=== PATIENT | female | born 1970 | race Caucasian/White ===

== ENCOUNTER 2017-06-06 19:41 | Inpatient (IN) | payer MEDICAID, OTHER, SELFPAY ==
[2017-06-06] MEDS ORDERED: HYDROmorphone 1 MG/ML Syringe IVPUSH ONE (20:34)
[2017-06-06] MEDS ORDERED: Ondansetron 4 MG/2 ML SDV IVPUSH ONE (20:35)
[2017-06-06] MEDS ORDERED: Sodium Chloride 0.9% 1,000 ML IV SCH (20:45)
[2017-06-06] MEDS ORDERED: Sodium Chloride 0.9% 10 ML Syringe FLUSH PRN (20:46)
[2017-06-06] MEDS ORDERED: Sodium Chloride 0.9% 80 ML IV SCH (21:00)
[2017-06-06] MEDS ORDERED: Iopamidol 612 MG/ML 100 ML Bottle IV SCH (21:00)
--- NOTE | 2017-06-06 22:16 | PCM.HP ---
H&P History of Present Illness - General Date of Service: 06/06/17 Admit Problem/Dx: Admission Diagnosis/Problem Admission Diagnosis/Problem Small bowel obstruction Source of Information: Patient History Limitations: Reports: No Limitations - History of Present Illness Initial Comments - Free Text/Narative: Small bowel obstruction; this is a 47 year old female who presents to the ER via POV, reports acute abdominal pain with vomiting. Reports pain started last night with pain, and vomiting with any attempts to eat or drink. reports now feeling weak, body aches from not eating. She was recently hospitalized from 05-25-17 to 05-28-17 at [place], [place]. for sudden onset abdominal pain. She had a Diagnostic laparoscopy, reduction of internal hernia and small vowel volvulus, EGD. hx of gastric bypass. Consulted with Dr. Eduardo Enciso, will admit to hospital with planned surgical intervention in am. -NPO -IV fluids -Pain Management Duration of Symptoms: Reports: Day(s):, Getting Worse Location: Reports: Abdomen, Generalized (weakness, chills, not feeling well.) Quality: Reports: Sharp, Stabbing Severity: Severe Improves with: Reports: None Worsens with: Reports: Eating (or drinking.) Associated Symptoms: Reports: Fever/Chills, Nausea/Vomiting, Weakness Abdominal Pain Score (Numeric/FACES): 7 - Related Data Allergies/Adverse Reactions: Allergies Allergy/AdvReac Type Severity Reaction Status Date / Time No Known Allergies Allergy Verified 06/06/17 20:07 Home Medications: Home Meds Acyclovir [Zovirax] 1 tab PO TID PRN 04/05/13 [History] Cyanocobalamin (Vitamin B-12) [Vitamin B-12] 3,000 mcg SL DAILY 04/05/13 [ History] Docusate Sodium [Colace] 200 mg PO DAILY PRN 04/05/13 [History] Multivitamin with Minerals [Multiple Vitamin] 1 tab PO BID 04/05/13 [History] Polyethylene Glycol 3350 [MiraLAX] 17 gm PO DAILY PRN 04/05/13 [History] Sennosides [Laxative] 30 mg PO BEDTIME PRN 04/05/13 [History] Vitamin B Complex [B Complex] 1 each PO DAILY 04/05/13 [History] Zolpidem Tartrate 5 mg PO BEDTIME PRN 04/05/13 [History] Ferrous Fumarate [Ferretts] 106 mg PO DAILY 03/30/14 [History] oxyCODONE [Oxycodone HCl] 10 mg PO Q4H PRN 06/06/17 [History] Past Medical History 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: Musculoskeletal History: Reports: Fracture, Other (See Below) Other Musculoskeletal History: degenerative disease Psychiatric History: Reports: Depression, Psych Hospitalization(s), Suicide Attempt Hematologic History: Reports: Anemia, B12 Deficiency, Folic Acid - Infectious Disease History Infectious Disease History: Reports: Chicken Pox - Past Surgical History GI Surgical History: Reports: Bariatric Procedure, Cholecystectomy, Colonoscopy , Hernia Repair/Other, Small Bowel Social & Family History - Tobacco Use Smoking Status *Q: Never Smoker Second Hand Smoke Exposure: No - Caffeine Use Caffeine Use: Reports: Coffee - Alcohol Use Days Per Week of Alcohol Use: 2 Number of Drinks Per Day: 2 Total Drinks Per Week: 4 - Recreational Drug Use Recreational Drug Use: No H&P Review of Systems - Review of Systems: Review Of Systems: See Below General: Reports: Chills, Malaise, Weakness HEENT: Reports: No Symptoms Pulmonary: Reports: No Symptoms Cardiovascular: Reports: No Symptoms Gastrointestinal: Reports: Abdominal Pain, Nausea, Vomiting Genitourinary: Reports: Other (decreased urine output) Musculoskeletal: Reports: Back Pain, Muscle Pain, Muscle Stiffness Skin: Reports: No Symptoms Psychiatric: Reports: No Symptoms Neurological: Reports: No Symptoms Hematologic/Lymphatic: Reports: Anemia (hx of anemia, iron replacement) Immunologic: Reports: No Symptoms Exam - Exam Exam: See Below - Vital Signs Vital Signs: Last Vital Signs Temp 36.7 C 06/06/17 20:12 Pulse 89 06/06/17 22:06 Resp 17 06/06/17 22:06 BP 118/69 06/06/17 22:06 Pulse Ox 95 06/06/17 22:06 Weight: 80.5 kg - Exam General: Alert, Oriented, Cooperative, Mild Distress (crying upon arrival to ER improved with IV hydration and medication) HEENT: PERRLA, Conjunctiva Clear, EACs Clear, EOMI, Hearing Intact, Posterior Pharynx Clear, Pupils Equal, Pupils Reactive Neck: Supple, Trachea Midline Lungs: Clear to Auscultation, Normal Respiratory Effort Cardiovascular: Regular Rate, Regular Rhythm, Normal S1, Normal S2 GI/Abdominal Exam: Distended, Other (generalized pain to palpation upper half of abdomen. bowel sounds absent.) (Female) Exam: Deferred Rectal (Female) Exam: Deferred Back Exam: Normal Inspection, Full Range of Motion, NT Extremities: Normal Inspection, Normal Range of Motion, Non-Tender, No Pedal Edema, Normal Capillary Refill Skin: Warm, Dry, Intact Neurological: Cranial Nerves Intact, Reflexes Equal Bilateral Neuro Extensive - Mental Status: Alert, Oriented x3, Normal Mood/Affect, Normal Cognition Neuro Extensive - Motor, Sensory, Reflexes: CN II-XII Intact Psychiatric: Alert, Normal Affect, Normal Mood - Patient Data Result Diagrams: 06/06/17 20:37 06/06/17 20:37 *Q Meaningful Use (ADM) - VTE *Q VTE Criteria *Q: - Stroke *Q Stroke Criteria *Q: - AMI *Q AMI Criteria *Q: - Problem List (1) Small bowel obstruction SNOMED Code(s): 199538712 ICD Code: K56.609 - UNSP INTESTNL OBST, UNSP TO PARTIAL VERSUS COMPLETE OBST Status: Acute Priority: High Current Visit: Yes (2) History of gastric bypass SNOMED Code(s): 823030792 ICD Code: Z98.890 - OTHER SPECIFIED POSTPROCEDURAL STATES Status: Acute Priority: High Current Visit: Yes (3) Hypokalemia SNOMED Code(s): 56163994 ICD Code: E87.6 - HYPOKALEMIA Status: Acute Priority: Medium Current Visit: Yes Problem List Initiated/Reviewed/Updated: Yes Orders Last 24hrs: Active Orders 24 hr Category Date Time Status Resuscitation Status Routine Resus Stat 06/06/17 21:57 Ordered Medication Orders Sodium Chloride (Normal Saline) 1,000 mls @ 999 mls/hr IV [facility]IRECTED [facility] Last Admin: 06/06/17 20:49 Dose: 999 mls/hr Sodium Chloride (Normal Saline) 80 mls @ 3 mls/sec IV ASDIRECTED [facility] Last Admin: 06/06/17 20:57 Dose: 3 mls/sec Iopamidol (Isovue-300 (61%)) 100 ml IV . 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 once Maintenance issues - - DVT prophylaxis - mechanical - GI prophylaxis - PPI IV Protonix 40mg - Nutrition - NPO - Escobar catheter - not indicated CODE STATUS - FULL Admission justification - This patient will be admitted for inpatient services and is medically appropriate meeting medical necessity for inpatient admission as outlined in my documentation. I reasonably expect the patient will require inpatient services that span a period time over 2 midnights. I reasonably expect this patient to be discharged or transferred within 96 hours [facility]. Disposition - anticipate discharge to home Primary care physician - [facility] Surgeon: Dr. Eduardo Enciso
[2017-06-06] MEDS ORDERED: Potassium Chloride 20 MEQ in Premix Bag 1 BAG IV ONE (22:22)
[2017-06-06] MEDS ORDERED: Zolpidem 5 MG Tab PO PRN (22:22)
[2017-06-06] MEDS ORDERED: Albuterol 0.083% 2.5 MG/3 ML Neb Soln NEB PRN (22:22)
[2017-06-06] MEDS ORDERED: Ondansetron 4 MG/2 ML SDV IV PRN (22:22)
[2017-06-06] MEDS ORDERED: HYDROmorphone/Normal Saline 15 MG/30 ML PCA IV PRN (22:22)
[2017-06-06] MEDS ORDERED: Naloxone 0.4 MG/ML SDV IVPUSH PRN ×2 (22:22)
[2017-06-06] MEDS: LORazepam 2 MG/ML MDV IV PRN (22:46)
[2017-06-06] MEDS: Dextrose 5%-Lactated Ringers 1,000 ML IV SCH (22:50)
[2017-06-06] MEDS: Pantoprazole 40 MG Vial IV SCH (22:58)
--- NOTE | 2017-06-07 00:39 | EDM.PDOC ---
ED HPI GENERAL MEDICAL PROBLEM - General Chief Complaint: Abdominal Pain Stated Complaint: PAIN NOT AN ACCIDENT Time Seen by Provider: 06/06/17 19:55 Source of Information: Reports: Patient History Limitations: Reports: No Limitations - History of Present Illness INITIAL COMMENTS - FREE TEXT/NARRATIVE: Small bowel obstruction; this is a 47 year old female who presents to the ER via POV, reports acute abdominal pain with vomiting. Reports pain started last night with pain, and vomiting with any attempts to eat or drink. reports now feeling weak, body aches from not eating. She was recently hospitalized from 05-25-17 to 05-28-17 at [place], [place]. for sudden onset abdominal pain. She had a Diagnostic laparoscopy, reduction of internal hernia and small vowel volvulus, EGD. hx of gastric bypass. Duration: Day(s):, Getting Worse Location: Reports: Abdomen, Generalized (weakness, chills, not feeling well.) Quality: Reports: Sharp, Stabbing Severity: Severe Improves with: Reports: None Worsens with: Reports: Eating (or drinking.) Associated Symptoms: Reports: Fever/Chills, Nausea/Vomiting, Weakness Abdominal Pain Score (Numeric/FACES): 7 - Related Data Allergies Allergy/AdvReac Type Severity Reaction Status Date / Time No Known Allergies Allergy Verified 06/06/17 20:07 Home Meds: Home Meds Acyclovir [Zovirax] 1 tab PO TID PRN 04/05/13 [History] Cyanocobalamin (Vitamin B-12) [Vitamin B-12] 3,000 mcg SL DAILY 04/05/13 [ History] Docusate Sodium [Colace] 200 mg PO DAILY PRN 04/05/13 [History] Multivitamin with Minerals [Multiple Vitamin] 1 tab PO BID 04/05/13 [History] Polyethylene Glycol 3350 [MiraLAX] 17 gm PO DAILY PRN 04/05/13 [History] Sennosides [Laxative] 30 mg PO BEDTIME PRN 04/05/13 [History] Vitamin B Complex [B Complex] 1 each PO DAILY 04/05/13 [History] Zolpidem Tartrate 5 mg PO BEDTIME PRN 04/05/13 [History] Ferrous Fumarate [Ferretts] 106 mg PO DAILY 03/30/14 [History] oxyCODONE [Oxycodone HCl] 10 mg PO Q4H PRN 06/06/17 [History] 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: Musculoskeletal History: Reports: Fracture, Other (See Below) Other Musculoskeletal History: degenerative disease Psychiatric History: Reports: Depression, Psych Hospitalization(s), Suicide Attempt Hematologic History: Reports: Anemia, B12 Deficiency, Folic Acid - Infectious Disease History Infectious Disease History: Reports: Chicken Pox - Past Surgical History GI Surgical History: Reports: Bariatric Procedure, Cholecystectomy, Colonoscopy , Hernia Repair/Other, Small Bowel Social & Family History - Family History Family Medical History: Noncontributory - Tobacco Use Smoking Status *Q: Never Smoker Second Hand Smoke Exposure: No - Caffeine Use Caffeine Use: Reports: Coffee - Alcohol Use Days Per Week of Alcohol Use: 2 Number of Drinks Per Day: 2 Total Drinks Per Week: 4 - Recreational Drug Use Recreational Drug Use: No - Living Situation & Occupation Living situation: Reports: with Family (lives in [facility]) ED ROS GENERAL - Review of Systems Review Of Systems: See Below Constitutional: Reports: Chills, Decreased Appetite (unable to eat or drink due to vomiting) HEENT: Reports: No Symptoms Respiratory: Reports: No Symptoms Cardiovascular: Reports: No Symptoms Endocrine: Reports: No Symptoms GI/Abdominal: Reports: Abdominal Pain, Nausea, Vomiting : Reports: Dysuria Musculoskeletal: Reports: Back Pain Skin: Reports: No Symptoms Neurological: Reports: No Symptoms Psychiatric: Reports: No Symptoms Hematologic/Lymphatic: Reports: No Symptoms Immunologic: Reports: No Symptoms ED EXAM, GENERAL - Physical Exam Exam: See Below Exam Limited By: No Limitations General Appearance: Alert, WD/WN, Moderate Distress Eye Exam: Bilateral Eye: Normal Inspection Ears: Normal External Exam, Normal Canal, Hearing Grossly Normal, Normal TMs Ear Exam: Bilateral Ear: Auricle Normal, Canal Normal, TM normal Nose: Normal Inspection, Normal Mucosa, No Blood Throat/Mouth: Normal Inspection, Normal Lips, Normal Teeth, Normal Gums, Normal Oropharynx, Normal Voice, No Airway Compromise Head: Atraumatic, Normocephalic Neck: Normal Inspection, Supple, Non-Tender, Full Range of Motion Respiratory/Chest: No Respiratory Distress, Lungs Clear, Normal Breath Sounds, No Accessory Muscle Use, Chest Non-Tender Cardiovascular: Normal Peripheral Pulses, Regular Rate, Rhythm, No Edema, No Gallop, No JVD, No Murmur, No Rub GI/Abdominal: Distended, Other (generalized pain to palpation upper half of abdomen. bowel sounds absent.) (Female) Exam: Deferred Rectal (Female) Exam: Deferred Back Exam: Normal Inspection, Full Range of Motion, NT Extremities: Normal Inspection, Normal Range of Motion, Non-Tender, No Pedal Edema, Normal Capillary Refill Neurological: Alert, Oriented, No Motor/Sensory Deficits Psychiatric: Anxious, Tearful Skin Exam: Warm, Dry, Intact, Normal Color, No Rash Lymphatic: No Adenopathy Course - Vital Signs Last Recorded V/S: Last Vital Signs Temp 37.3 C 06/06/17 22:22 Pulse 68 06/06/17 22:22 Resp 16 06/06/17 22:22 BP 125/76 06/06/17 22:22 Pulse Ox 93 L 06/06/17 23:19 - Orders/Labs/Meds Orders: Active Orders 24 hr Category Date Time Status Abdomen Pelvis w Cont [CT] Stat Exams 06/06/17 20:41 Taken Medication Orders Albuterol (Proventil Neb Soln) 2.5 mg NEB Q4H PRN PRN Reason: Shortness Of Breath/wheezing Hydromorphone HCl (Dilaudid Marine Firer 15 Mg In Ns 30 Ml) 0 mg IV ASDIRECTED PRN; Protocol PRN Reason: Pain Last Admin: 06/06/17 22:44 Dose: 15 mg Dextrose/Lactated Ringer's (Dextrose 5%-Lactated Ringers) 1,000 mls @ 125 mls/ hr IV ASDIRECTED MADDI Last Admin: 06/06/17 22:50 Dose: 125 mls/hr Lorazepam (Ativan) 1 mg IV Q6H PRN PRN Reason: Nausea/Vomiting Last Admin: 06/06/17 22:46 Dose: 1 mg Naloxone HCl (Narcan) 0.4 mg IVPUSH Q2M PRN PRN Reason: Respiratory Distress Naloxone HCl (Narcan) 0.4 mg IVPUSH Q2M PRN PRN Reason: Respiratory Distress Ondansetron HCl (Zofran) 4 mg IV Q4H PRN PRN Reason: Nausea/Vomiting Pantoprazole Sodium (Protonix Iv) 40 mg IV Q12H MADDI Last Admin: 06/06/17 22:58 Dose: 40 mg Zolpidem Tartrate (Ambien) 5 mg PO BEDTIME PRN PRN Reason: Other Last Admin: 06/06/17 23:07 Dose: 5 mg Labs: Laboratory Tests 06/06/17 06/06/17 06/06/17 Range/Units 20:37 20:37 20:37 WBC 15.0 H (4.5-11.0) K/uL RBC 4.18 (3.30-5.50) M/uL Hgb 12.8 (12.0-15.0) g/dL Hct 39.2 (36.0-48.0) % MCV 94 (80-98) fL MCH 31 (27-31) pg MCHC 33 (32-36) % Plt Count 398 (150-400) K/uL Neut % (Auto) 93 H (36-66) % Lymph % (Auto) 4 L (24-44) % Porter % (Auto) 2 (2-6) % Eos % (Auto) 1 L (2-4) % Baso % (Auto) 0 (0-1) % PT 10.3 (9.5-12.0) sec INR 0.96 (0.80-1.20) Sodium 139 L (140-148) mmol/L Potassium 3.5 L (3.6-5.2) mmol/L Chloride 103 (100-108) mmol/L Carbon Dioxide 24 (21-32) mmol/L Anion Gap 15.5 H (5.0-14.0) mmol/L BUN 14 (7-18) mg/dL Creatinine 0.8 (0.6-1.0) mg/dL Est Cr Clr Drug Dosing 71.91 mL/min Estimated GFR (MDRD) > 60 (>60) Glucose 109 H (74-106) mg/dL Calcium 8.8 (8.5-10.1) mg/dL Magnesium (1.8-2.4) mg/dL Total Bilirubin 0.4 (0.2-1.0) mg/dL AST 18 (15-37) U/L ALT 23 (12-78) U/L Alkaline Phosphatase 52 (46-116) U/L Total Protein 7.3 (6.4-8.2) g/dL Albumin 3.8 (3.4-5.0) g/dL Globulin 3.5 (2.3-3.5) g/dL Albumin/Globulin Ratio 1.1 L (1.2-2.2) Amylase (25-115) U/L Lipase (73-393) U/L Urine Color Urine Appearance Urine pH (4.5-8.0) Ur Specific [place] (1.008-1.030) Urine Protein (NEGATIVE) mg/dL Urine Glucose (UA) (NEGATIVE) mg/dL Urine Ketones (NEGATIVE) mg/dL Urine Occult Blood (NEGATIVE) Urine Nitrite (NEGATIVE) Urine Bilirubin (NEGATIVE) Urine Urobilinogen (NORMAL) mg/dL Ur Leukocyte Esterase (NEGATIVE) Urine RBC (0-5) Urine WBC (0-5) Ur Epithelial Cells Amorphous Sediment Urine Bacteria Urine Mucus Urine Other Urinalysis Comment 06/06/17 06/06/17 06/06/17 Range/Units 20:37 20:37 20:53 WBC (4.5-11.0) K/uL RBC (3.30-5.50) M/uL Hgb (12.0-15.0) g/dL Hct (36.0-48.0) % MCV (80-98) fL MCH (27-31) pg MCHC (32-36) % Plt Count (150-400) K/uL Neut % (Auto) (36-66) % Lymph % (Auto) (24-44) % Porter % (Auto) (2-6) % Eos % (Auto) (2-4) % Baso % (Auto) (0-1) % PT (9.5-12.0) sec INR (0.80-1.20) Sodium (140-148) mmol/L Potassium (3.6-5.2) mmol/L Chloride (100-108) mmol/L Carbon Dioxide (21-32) mmol/L Anion Gap (5.0-14.0) mmol/L BUN (7-18) mg/dL Creatinine 0.7 (0.6-1.0) mg/dL Est Cr Clr Drug Dosing 82.19 mL/min Estimated GFR (MDRD) > 60 (>60) Glucose (74-106) mg/dL Calcium (8.5-10.1) mg/dL Magnesium 1.9 (1.8-2.4) mg/dL Total Bilirubin (0.2-1.0) mg/dL AST (15-37) U/L ALT (12-78) U/L Alkaline Phosphatase (46-116) U/L Total Protein (6.4-8.2) g/dL Albumin (3.4-5.0) g/dL Globulin (2.3-3.5) g/dL Albumin/Globulin Ratio (1.2-2.2) Amylase 57 (25-115) U/L Lipase 362 (73-393) U/L Urine Color [place] Urine Appearance Cloudy Urine pH 5.0 (4.5-8.0) Ur Specific [place] 1.025 (1.008-1.030) Urine Protein Negative (NEGATIVE) mg/dL Urine Glucose (UA) Normal (NEGATIVE) mg/dL Urine Ketones Negative (NEGATIVE) mg/dL Urine Occult Blood Large (NEGATIVE) Urine Nitrite Negative (NEGATIVE) Urine Bilirubin Small (NEGATIVE) Urine Urobilinogen 1 (NORMAL) mg/dL Ur Leukocyte Esterase Small (NEGATIVE) Urine RBC 0-5 (0-5) Urine WBC 5-10 H (0-5) Ur Epithelial Cells Many Amorphous Sediment Few Urine Bacteria Moderate Urine Mucus Numerous Urine Other See note Urinalysis Comment Clue cells seen Meds: Medications Generic Name Dose Route Start Last Admin Trade Name Freq PRN Reason Stop Dose Admin Albuterol 2.5 mg 06/06/17 22:22 Proventil Neb Soln NEB Q4H PRN Shortness Of Breath/wheezing Hydromorphone HCl 0 mg 06/06/17 22:22 06/06/17 22:44 Dilaudid Marine Firer 15 Mg In Ns 30 Ml IV 15 mg ASDIRECTED PRN Administration Pain Protocol Dextrose/Lactated Ringer's 1,000 mls @ 125 mls/hr 06/06/17 22:22 06/06/17 22: 50 Dextrose 5%-Lactated Ringers IV 125 mls/hr ASDIRECTED MADDI Administration Lorazepam 1 mg 06/06/17 22:22 06/06/17 22:46 Ativan IV 1 mg Q6H PRN Administration Nausea/Vomiting Naloxone HCl 0.4 mg 06/06/17 22:22 Narcan IVPUSH Q2M PRN Respiratory Distress Naloxone HCl 0.4 mg 06/06/17 22:22 Narcan IVPUSH Q2M PRN Respiratory Distress Ondansetron HCl 4 mg 06/06/17 22:22 Zofran IV Q4H PRN Nausea/Vomiting Pantoprazole Sodium 40 mg 06/06/17 22:30 06/06/17 22:58 Protonix Iv IV 40 mg Q12H MADDI Administration Zolpidem Tartrate 5 mg 06/06/17 22:22 06/06/17 23:07 Ambien PO 5 mg BEDTIME PRN Administration Other Discontinued Medications Generic Name Dose Route Start Last Admin Trade Name Freq PRN Reason Stop Dose Admin Hydromorphone HCl 1 mg 06/06/17 20:34 06/06/17 20:49 Dilaudid IVPUSH 06/06/17 20:35 1 mg ONETIME ONE Administration Sodium Chloride 1,000 mls @ 999 mls/hr 06/06/17 20:45 06/06/17 20:49 Normal Saline IV 999 mls/hr ASDIRECTED MADDI Administration Sodium Chloride 80 mls @ 3 mls/sec 06/06/17 21:00 06/06/17 20:57 Normal Saline IV 3 mls/sec ASDIRECTED MADDI Administration Potassium Chloride 20 meq/ 100 mls @ 50 mls/hr 06/06/17 22:22 06/06/17 22:48 Premix IV 06/07/17 00:21 50 mls/hr ONETIME ONE Administration Iopamidol 100 ml 06/06/17 21:00 06/06/17 20:57 Isovue-300 (61%) IV 100 ml . DIRECTED MADDI Administration Lidocaine HCl Confirm 06/06/17 22:33 06/06/17 22:53 Xylocaine-Mpf 1% Administered 06/06/17 22:34 5 ml Dose Administration 5 ml .ROUTE .STK-MED ONE Ondansetron HCl 4 mg 06/06/17 20:35 06/06/17 20:49 Zofran IVPUSH 06/06/17 20:36 4 mg ONETIME ONE Administration Sodium Chloride 10 ml 06/06/17 20:46 06/06/17 20:57 Saline Flush FLUSH 10 ml ASDIRECTED PRN Administration Keep Vein Open - Re-Assessments/Exams Free Text/Narrative Re-Assessment/Exam: 06/06/2017 21:[address]; impression; this was reviewed with Ms. Rayo -post gastric bypass changes with obstruction involving the afferent loop, although small bowel dilatation extends to a short segment disetal to the jejunal anastomosis with apparent wall thickening in the small bowel segment at the transition point in the anterior right abdomen. mild bladder wall thickening. correlate with urinalysis for cystitis., smal pelvic free fluid. a; small bowel obstruction Consulted with Dr. Eduardo Enciso, will admit to hospital with planned surgical intervention in am. -NPO -IV fluids -Pain Management 06/07/17 00:46 Departure - Departure Time of Disposition: 23:00 Disposition: Admitted As Inpatient 66 Condition: Fair Clinical Impression: Small bowel obstruction - Discharge Information - Problem List & Annotations (1) Small bowel obstruction SNOMED Code(s): 502201257 Code(s): K56.609 - UNSP INTESTNL OBST, UNSP TO PARTIAL VERSUS COMPLETE OBST Status: Acute Priority: High Current Visit: Yes (2) History of gastric bypass SNOMED Code(s): 906360924 Code(s): Z98.890 - OTHER SPECIFIED POSTPROCEDURAL STATES Status: Acute Priority: High Current Visit: Yes (3) Hypokalemia SNOMED Code(s): 98535223 Code(s): E87.6 - HYPOKALEMIA Status: Acute Priority: Medium Current Visit: Yes - My Orders Last 24 Hours: My Active Orders 06/06/17 20:41 Abdomen Pelvis w Cont [CT] Stat - Assessment/Plan Last 24 Hours: My Active Orders 06/06/17 20:41 Abdomen Pelvis w Cont [CT] Stat
[2017-06-07] MEDS: Dextrose 5%-Lactated Ringers 1,000 ML IV SCH ×3 (06:11→22:17)
[2017-06-07] MEDS: LORazepam 2 MG/ML MDV IV PRN (06:34)
[2017-06-07] MEDS ORDERED: Glycopyrrolate 0.2 MG/ML 5 ML MDV ONE (07:22)
[2017-06-07] MEDS ORDERED: Ondansetron 4 MG/2 ML SDV ONE (07:22)
[2017-06-07] MEDS ORDERED: Succinylcholine 200 MG/10 ML MDV ONE (07:22)
[2017-06-07] MEDS ORDERED: Rocuronium 50 MG/5 ML Vial ONE ×2 (07:22→09:10)
[2017-06-07] MEDS ORDERED: Neostigmine Methylsulfate 1 MG/ML 5 ML Syringe ONE (07:22)
[2017-06-07] MEDS ORDERED: Propofol 200 MG/20 ML SDV ONE (07:22)
[2017-06-07] MEDS ORDERED: Dexamethasone 4 MG/ML SDV ONE (07:22)
[2017-06-07] MEDS ORDERED: HYDROmorphone/Normal Saline 15 MG/30 ML PCA IV PRN (07:41)
[2017-06-07] MEDS ORDERED: Naloxone 0.4 MG/ML SDV IVPUSH PRN (07:42)
[2017-06-07] MEDS ORDERED: Ropivacaine 40 ML, Dexamethasone 8 MG, EPINEPHrine 0.4 MG, Sodium Chloride 0.9% 37.6 ML NERVRT SCH ×4 (08:30)
[2017-06-07] MEDS ORDERED: Lidocaine 2% 100 MG/5 ML Syringe IVPUSH ONE (08:30)
[2017-06-07] MEDS ORDERED: Ketamine 500 MG/5 ML MDV IV SCH (08:30)
[2017-06-07] MEDS ORDERED: Lidocaine 0.4%/D5W 2 GM/500 ML BAG IV SCH (08:30)
[2017-06-07] MEDS ORDERED: cefOXitin 2 GM in Sodium Chloride 0.9% 50 ML IV ONE (08:45)
[2017-06-07] MEDS ORDERED: Sodium Chloride 0.9% 10 ML ONE (09:03)
[2017-06-07] MEDS ORDERED: Meropenem 500 MG SDV ONE (09:03)
[2017-06-07] MEDS ORDERED: Scopolamine 1.5 MG Transdermal Patch ONE (10:23)
[2017-06-07] MEDS ORDERED: Acetaminophen 1,000 MG in Premix Bag 1 BAG IV ONE (10:45)
[2017-06-07] MEDS ORDERED: diphenhydrAMINE 50 MG/ML SDV IVPUSH PRN (12:00)
[2017-06-07] MEDS ORDERED: Labetalol 20 MG/4 ML Syringe IVPUSH PRN (12:00)
[2017-06-07] MEDS ORDERED: Metoclopramide 10 MG/2 ML SDV IVPUSH PRN (12:00)
[2017-06-07] MEDS: Ondansetron 4 MG/2 ML SDV IVPUSH PRN ×2 (12:10→16:56)
[2017-06-07] MEDS: hydrOXYzine HCl 100 MG/2 ML SDV IM PRN (12:18)
[2017-06-07] MEDS: Gabapentin 250 MG/5 ML Solution ML 470 ML Bottle PO SCH ×2 (14:28→21:26)
[2017-06-07] MEDS: Pantoprazole 40 MG Vial IVPUSH SCH (14:28)
[2017-06-07] MEDS: cefOXitin 2 GM in Sodium Chloride 0.9% 50 ML IV SCH ×2 (14:29→19:52)
[2017-06-07] MEDS ORDERED: MVI, Adult with Vitamin K 10 ML, Thiamine 200 MG, Chromium/Copper/Mang/Selen/Zn 1 ML in... IV SCH ×4 (16:00)
[2017-06-07] MEDS: Acetaminophen Soln 650 MG/20.3 ML UD Cup PO SCH ×2 (16:03→21:26)
[2017-06-07] MEDS: Pantoprazole 40 MG Vial IV SCH (16:49)
[2017-06-07] MEDS: Celecoxib 200 MG Cap PO SCH (17:23)
[2017-06-07] MEDS: Heparin Sodium 5,000 Units/ML Vial SUBCUT SCH (17:26)
[2017-06-08] MEDS: cefOXitin 2 GM in Sodium Chloride 0.9% 50 ML IV SCH ×2 (01:19→08:19)
[2017-06-08] MEDS: Dextrose 5%-Lactated Ringers 1,000 ML IV SCH ×2 (03:38→13:47)
[2017-06-08] MEDS: Acetaminophen Soln 650 MG/20.3 ML UD Cup PO SCH ×4 (03:38→21:40)
[2017-06-08] MEDS: Heparin Sodium 5,000 Units/ML Vial SUBCUT SCH ×2 (05:01→17:49)
[2017-06-08] MEDS: Celecoxib 200 MG Cap PO SCH (08:20)
[2017-06-08] MEDS: Gabapentin 250 MG/5 ML Solution ML 470 ML Bottle PO SCH ×3 (08:48→20:26)
[2017-06-08] MEDS: Bisacodyl 5 MG Tab PO SCH ×2 (09:28→20:27)
[2017-06-08] MEDS: Acyclovir 200 MG Cap PO SCH ×2 (09:32→15:07)
[2017-06-08] MEDS: SCOPOLAMINE PATCH CHECK TOP SCH (10:18)
[2017-06-08] MEDS: Magnesium Sulfate/Water 2 GM in Premix Bag 1 BAG IV SCH ×3 (11:49→21:40)
[2017-06-08] MEDS: Ondansetron 4 MG/2 ML SDV IVPUSH PRN (14:38)
[2017-06-08] MEDS: hydrOXYzine HCl 100 MG/2 ML SDV IM PRN ×2 (14:49→21:49)
[2017-06-08] MEDS ORDERED: Acyclovir 200 MG Cap PO PRN (15:07)
[2017-06-08] MEDS: Pantoprazole 40 MG Vial IVPUSH SCH (15:13)
[2017-06-08] MEDS: MVI, Adult with Vitamin K 10 ML, Thiamine 200 MG, Chromium/Copper/Mang/Selen/Zn 1 ML in... IV SCH ×4 (16:04)
--- NOTE | 2017-06-08 16:42 | PN ---
DATE OF SERVICE: 06/08/2017 The patient has been afebrile with stable vital signs. Urine output has been satisfactory. Escobar catheter has been taken out. Upper GI x-ray looks good and things progressing nicely from the GI tract, and she has been tolerating step-1 diet satisfactorily and will go up to step-3 diet today. Her magnesium is somewhat low on labs, otherwise, her B12 and ferritin levels are satisfactory. We will supplement the magnesium. The other group started her with pertinent oral medication, begin some ongoing bowel stimulation. We will leave her on DAIRY ASSOCIATE for today, most likely getting over to oral medicine tomorrow in addition to the energy- type pain agents. Eduardo Enciso MD /[id number]
[2017-06-08] MEDS: Zolpidem 5 MG Tab PO PRN (21:40)
[2017-06-09] MEDS: Acetaminophen Soln 650 MG/20.3 ML UD Cup PO SCH ×4 (03:56→21:46)
[2017-06-09] MEDS: Magnesium Sulfate/Water 2 GM in Premix Bag 1 BAG IV SCH ×3 (03:57→15:25)
[2017-06-09] MEDS: hydrOXYzine HCl 100 MG/2 ML SDV IM PRN (04:03)
[2017-06-09] MEDS: Dextrose 5%-Lactated Ringers 1,000 ML IV SCH (04:06)
[2017-06-09] MEDS: Heparin Sodium 5,000 Units/ML Vial SUBCUT SCH ×2 (06:47→17:43)
[2017-06-09] MEDS: Celecoxib 200 MG Cap PO SCH (08:24)
[2017-06-09] MEDS: Bisacodyl 5 MG Tab PO SCH ×2 (08:25→21:45)
[2017-06-09] MEDS: SCOPOLAMINE PATCH CHECK TOP SCH (08:27)
--- NOTE | 2017-06-09 08:32 | PN ---
DATE OF SERVICE: 06/09/2017 SUBJECTIVE: Tasha is postop day #1. 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 She has been up ambulating. Vital signs have been stable. Oral intake was recorded as 5280. On Escobar, urine output was 4950. She had 75% of her breakfast, 100% of lunch and dinner. OBJECTIVE: GENERAL: Tasha is a pleasant 47-year-old female. She is alert and orientated. SKIN: Warm and dry. Color pale. VITAL SIGNS: TPR is 97.7, 73, 16, blood pressure 102/53. HEENT: Negative. NECK: Supple. HEART: Regular rate and rhythm. LUNGS: Clear. ABDOMEN: Dressings dry and intact. Abdominal binder is on. EXTREMITIES: Without peripheral edema. 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 Date of surgery is 06/07/2017. PLAN: 1. Continue same orders. 2. We will evaluate p.r.n. or in a.m. Cate Bautista PA-C /[id number]
[2017-06-09] MEDS ORDERED: Cyanocobalamin (Vitamin B12) 1,000 MCG/ML SDV IM ONE (09:00)
[2017-06-09] MEDS: Gabapentin 250 MG/5 ML Solution ML 470 ML Bottle PO SCH ×3 (09:27→21:50)
[2017-06-09] MEDS: Ondansetron 4 MG/2 ML SDV IVPUSH PRN (09:27)
--- NOTE | 2017-06-09 09:54 | CR ---
UGI wo KUB HISTORY: eval R -Y GBP FINDINGS: After administration of oral contrast, upright views were obtained. Post operative changes gastric bypass. Surgical drains in place. No evidence for leak. Contrast passes freely into proximal small bowel loops. Surgical clips right upper quadrant. Moderate amount of air and stool throughout colon but no signs o f obstruction. IMPRESSION: No evidence for leak or obstruction.
[2017-06-09] MEDS: Pantoprazole 40 MG Delayed-Release Granules 1 Packet PO SCH (13:40)
[2017-06-09] MEDS: MVI, Adult with Vitamin K 10 ML, Thiamine 200 MG, Chromium/Copper/Mang/Selen/Zn 1 ML in... IV SCH ×8 (14:27→15:24)
[2017-06-09] MEDS ORDERED: Bisacodyl 10 MG Supp RECTAL PRN (14:46)
[2017-06-09] MEDS: HYDROmorphone 2 MG Tab PO PRN (17:41)
[2017-06-09] MEDS: Zolpidem 5 MG Tab PO PRN (21:51)
[2017-06-09] MEDS: Ondansetron 4 MG Tab.DIS PO PRN (22:00)
[2017-06-10] MEDS: HYDROmorphone 2 MG Tab PO PRN (02:09)
[2017-06-10] MEDS: Acetaminophen Soln 650 MG/20.3 ML UD Cup PO SCH ×4 (05:09→21:04)
[2017-06-10] MEDS: Heparin Sodium 5,000 Units/ML Vial SUBCUT SCH ×2 (05:11→17:52)
[2017-06-10] MEDS: Ondansetron 4 MG Tab.DIS PO PRN ×2 (08:50→14:02)
[2017-06-10] MEDS: Bisacodyl 10 MG Supp RECTAL SCH ×2 (08:51→21:04)
[2017-06-10] MEDS: Bisacodyl 5 MG Tab PO SCH ×2 (08:52→21:04)
--- NOTE | 2017-06-10 09:30 | PN ---
DATE OF SERVICE: 06/10/2017 SUBJECTIVE: Tasha reports that she has been nauseated most of the night, running a low- grade temperature that resolves after she uses . She did have one small diarrhea stool. She said which was barely anything but still feels bloated, constipated, and extremely nauseated. Pain is controlled she states, but she is wondering if that oral Dilaudid is causing her to have more nausea. REVIEW OF SYSTEMS: Remainder of review of systems negative for any pertinent positives and negatives. OBJECTIVE: GENERAL: Tasha Rayo is a pleasant 47-year-old female. She is sitting up in the chair, holding an emesis bag. VITAL SIGNS: TPR is 98.4, 74, 16, blood pressure 114/74. HEENT: Negative. NECK: Supple. HEART: Regular rate and rhythm. LUNGS: Clear. ABDOMEN: Incision was not looked at. She is extremely nauseated. Abdomen does seem a little bit distended. She has abdominal binder on. EXTREMITIES: Without peripheral edema. ASSESSMENT: 1. Postoperative nausea. 2. Exploratory laparotomy with reduction of small bowel volvulus, revision of jejunostomy, component of the Noel-en-Y gastric bypass surgery, and sigmoid colon resection for small bowel obstruction associated with small bowel volvulus and fixed stricture at the Noel limb. Date of surgery is 06/07/2017. PLAN: 1. Acapella, use 10 times every hour while awake. 2. Oxycodone 5 mg 1 to 2 q.4 hours p.r.n. pain. 3. Discontinue Dilaudid. 4. Dulcolax suppositories b.i.d. until bowel movement. 5. Continue good pulmonary toilet. 6. We will evaluate p.r.n. or in a.m. Cate Bautista PA-C /[id number]
[2017-06-10] MEDS: Gabapentin 250 MG/5 ML Solution ML 470 ML Bottle PO SCH ×3 (09:32→21:10)
[2017-06-10] MEDS: Celecoxib 200 MG Cap PO SCH (09:33)
[2017-06-10] MEDS: oxyCODONE 5 MG Tab PO PRN ×3 (12:02→22:42)
[2017-06-10] MEDS: Pantoprazole 40 MG Delayed-Release Granules 1 Packet PO SCH (13:49)
[2017-06-10] MEDS: Zolpidem 5 MG Tab PO PRN (22:41)
[2017-06-11] MEDS: oxyCODONE 5 MG Tab PO PRN ×2 (05:00→20:34)
[2017-06-11] MEDS: Acetaminophen Soln 650 MG/20.3 ML UD Cup PO SCH ×4 (05:00→22:20)
[2017-06-11] MEDS: Heparin Sodium 5,000 Units/ML Vial SUBCUT SCH ×2 (05:02→18:07)
[2017-06-11] MEDS ORDERED: Iohexol 647 MG/ML 50 ML SDV IVPUSH PRN (08:35)
[2017-06-11] MEDS ORDERED: Iopamidol 612 MG/ML 100 ML Bottle IV PRN (08:35)
--- NOTE | 2017-06-11 09:26 | PN ---
DATE OF SERVICE: 06/07/2017 SUBJECTIVE: Tasha reports that she is not feeling well. She is having "one squirt diarrhea stools." She is feeling full, distended, and she is unable to eat because she is nauseated. Oral intake yesterday was 1500 and 5 bowel movements were recorded. Remainder of review of systems is negative for any pertinent positives and negatives. OBJECTIVE: GENERAL: Tasha is a 47-year-old female. HEENT: TPR is 96.8, 75, and 16. Blood pressure 116/64. HEENT: Negative. NECK: Supple. HEART: Regular rate and rhythm. LUNGS: Clear. ABDOMEN: Abdominal binder is on. EXTREMITIES: Without peripheral edema. ASSESSMENT: 1. Postoperative nausea. 2. Exploratory laparotomy with reduction of small bowel volvulus. 3. Revision of the jejunostomy component of the Noel-en-Y gastric bypass surgery. 4. Sigmoid colon resection for small bowel obstruction associated with small bowel volvulus. 5. Stricture at the Noel limb. Date of surgery 06/07/2017. PLAN: Upper GI with small bowel follow-through using water-soluble contrast. Call Eduardo Enciso MD, with results. We will evaluate p.r.n. or in the a.m. Cate Bautista PA-C /[id number]
[2017-06-11] MEDS: Bisacodyl 10 MG Supp RECTAL SCH ×2 (10:16→20:26)
[2017-06-11] MEDS: Bisacodyl 5 MG Tab PO SCH ×2 (10:17→20:26)
[2017-06-11] MEDS: Celecoxib 200 MG Cap PO SCH (10:41)
[2017-06-11] MEDS: Gabapentin 250 MG/5 ML Solution ML 470 ML Bottle PO SCH ×3 (10:45→20:33)
--- NOTE | 2017-06-11 11:43 | CR ---
UGI w Small Bowel wo Air INDICATION: abdomen is distended and nausea COMPARISON: Limited upper GI on 06/08/[address] abdomen pelvis 06/06/2017 FINDINGS: Upper GI and small bowel follow-through performed with water soluble contrast. Patient nk approximately 100 cc of contrast. Contrast was followed through the esophagus which was patent and showed no narrowing or obstruction. GE junction is patent. Postoperative changes gastric bypass surgery intact with no extravasation of c ontrast or obstruction. Gastric pouch filled and appears unremarkable. Contrast was then followed thr ough small bowel. Contrast was seen scattered throughout the colon on the 1 hour and 35 minute image. No abnormal small bowel dilatation is seen. Contrast was followed through 2 hours and 35 minutes and again no abnormal small bowel dilatation is seen and contrast is seen in the colon including the rec tosigmoid colon. Patient reported having diarrhea periodically during the delayed phase of the study. Patient also reports no pain at the end of the study. IMPRESSION: No signs of bowel obstruction. Intact appearing gastric bypass surgery. Patient reports pain resolved at the end of the study.
[2017-06-11] MEDS: Pantoprazole 40 MG Delayed-Release Granules 1 Packet PO SCH (15:07)
--- NOTE | 2017-06-11 18:05 | OR ---
DATE OF PROCEDURE: 06/07/2017 PREOPERATIVE DIAGNOSIS: Small bowel obstruction. POSTOPERATIVE DIAGNOSES: 1. Small bowel obstruction associated with small bowel volvulus and thick stricture at the Noel limb at the point of jejunojejunostomy. 2. Chronic sigmoid colon volvulus. OPERATIVE PROCEDURE: 1. Exploratory laparotomy with:. a. Reduction of small bowel volvulus (27683). b. Revision of jejunojejunostomy component of Noel-en-Y gastric bypass (00745). c. Sigmoid colon resection with coloproctostomy (21134). ANESTHESIA: General. PROVIDER NETWORK MGR: KRISHNA Tapia3. INDICATIONS FOR PROCEDURE: This is a 47-year-old admitted overnight had a small bowel volvulus following gastric bypass treated in [place]. She presents now with recurrent obstruction. The bowel loops are quite dilated and given this, we will proceed with hopefully small open incision so as to avoid injury to the bowel with a trocar placement as well as the open approach will likely allow us to more definitively treat the process in terms of being able to visualize things that contribute to the pathology somewhat better with an open approach. Potential risks of the procedure including bleeding, infection, leaks from various GI tract closures, problems with bowel obstruction over time as well as the possibility of cardiopulmonary, septic, or hemorrhagic complications leading to were discussed, and the patient wishes to proceed. DETAILS OF PROCEDURE: The patient was taken to the operating room and placed in a supine position. After general endotracheal anesthesia was induced, a Escobar catheter was inserted and the abdomen prepped and draped. Midline incision from the umbilicus extending roughly 2/3rd up to the xiphoid was then made and carried down through the skin and subcutaneous tissue and linea alba and peritoneum. Upon entering the peritoneal cavity, the patient was noted to have a markedly distended Noel limb up and somewhat distended biliopancreatic limb beyond the jejunojejunostomy. There was no significant small bowel distention. There was rotation of the jejunojejunostomy underneath the mesenteric defect. This was then reduced and that mesenteric defect subsequently closed with a running 2-0 silk stitch. Examination of the jejunojejunostomy showed a fixed stricture with a likelihood that long-term adhesion present creating a quite narrowed and acutely angulated from the point where the Noel limb entered the jejunojejunostomy and this appeared to mandate a revision of the anastomosis. Given this, then the Noel limb was divided immediately adjacent to the present jejunojejunostomy. The floor from the biliopancreatic limb to what had been the common limb was unobstructed and the Noel limb was determined to be an anastomosis somewhat distal to that. The Noel limb itself measured 140 cm and we then identified the ileocecal valve and walked back 210 cm where the revised jejunojejunostomy was accomplished with internal firing of the Endo-HOLLIS 60 mm stapler. The common opening was closed transversely with the same stapler and angles anastomosed, and mesenteric defect approximated with some 2-0 silk stitch. One additional finding in this case that the patient appeared to have chronic sigmoid colon volvulus. The base of the colon was twisted, it was markedly edematous and at the time of initial exploration, this was roughly 2/3rd rotated at the volvulus location. This appeared to be patient at high risk for subsequent complicated sigmoid volvulus and given this was twisted. The bowel proximally and distally was divided with the HOLLIS stapler distal end of the resection being at the mid upper rectal area. The GI tract continuity was then accomplished with 2 internal firings of the HOLLIS hansen loads between the rectum and the colon and the common opening was closed with some purple loads and the angles anastomosed, and mesenteric defect approximated with some 3-0 Vicryl stitch. Both of the fresh anastomoses were then reinforced with fibrin sealant as well. The revised jejunojejunostomy appeared to be quite satisfactory at this point of time, and the coloproctostomy likewise looked to be intact. The abdomen was irrigated with meropenem-containing saline solution. Single Manuel-Melendez drain was taken through a stab wound and the right mid abdomen taken down along the revised jejunojejunostomy and then along the coloproctostomy. The patient had sufficient omentum at this time to cover the incision nicely and it was pulled down and the incision then closed with a #2 Vicryl stitch at the fascial level. The subcutaneous tissue was drained with a 10-Norwegian round Manuel-Melendez drain, and then the subcu tissue closed with 2 layers of 3-0 Vicryl stitch deep and dangelo for the skin. The drain was affixed with a 3-0 Vicryl stitch as well. The patient was taken to the recovery room in satisfactory condition. Eduardo Enciso MD /[id number]
[2017-06-11] MEDS: Zolpidem 5 MG Tab PO PRN (22:21)
[2017-06-12] MEDS: Acetaminophen Soln 650 MG/20.3 ML UD Cup PO SCH (04:02)
[2017-06-12] MEDS: Heparin Sodium 5,000 Units/ML Vial SUBCUT SCH (07:15)
[2017-06-12 07:24] VITALS: BP 115/76
--- NOTE | 2017-06-12 09:34 | PN ---
DATE OF SERVICE: 06/07/2017 The patient was admitted overnight with recurrent bowel obstruction. She is status post Noel-en-Y gastric bypass and had a small amount of volvulus treated in [place] in the last week or so, but presents now with recurrent small bowel obstruction. The bowel is quite distended, and given this, along with the failure of laparoscopic approach in what otherwise were well trained bariatric surgeons, led to the decision to proceed with an open incision, hopefully fairly small. This will avoid problems with injury to the bowel with trocar placement, as well as give us a better tactile and visual exposure of the entire process so as not to have the resolution of the bowel obstruction reccur once again. The patient presently has a BMI of 31 and is also chronically fairly constipated. As discussed with the patient prior to the procedure, if we needed to resect/revise the jejunojejunostomy, we would reconstruct the revised jejunojejunostomy in a somewhat more distal position, creating somewhat more in the way of malabsorption. Potential risks of that, specifically including frequent loose bowel movements, possible nutritional deficiencies, possible need for additional revisions were gone over, and the patient wishes to proceed. In general, potential complications including bleeding, infection, leaks from various GI tract closures, problems with bowel obstruction recurring over time as well as possibility of cardiopulmonary, septic, or hemorrhagic complications leading to were discussed, and the patient wishes to proceed. This will be undertaken later this morning. Eduardo Enciso MD /[id number]
[2017-06-12] MEDS: Celecoxib 200 MG Cap PO SCH (09:36)
--- NOTE | 2017-06-13 09:38 | DISCH ---
ADMISSION DIAGNOSES: 1. Partial small bowel obstruction. 2. Status post Noel-en-Y gastric bypass surgery. 3. Unspecified surgical malabsorption. 4. B12 deficiency. 5. Status post diagnostic laparoscopy with internal hernia and small bowel volvulus on 05/25/2017. 6. Iron deficiency anemia. 7. Adjustment disorder with mixed anxiety and depression. DISCHARGE DIAGNOSES: 1. Exploratory laparotomy with reduction of small bowel volvulus. 2. Revision of a jejunojejunostomy component of the Noel-en-Y gastric bypass surgery and sigmoid colon resection with coloproctostomy for small bowel obstruction associated with small bowel volvulus and thick stricture at the Noel limb at the point of the jejunojejunostomy and chronic sigmoid colon volvulus. HISTORY: Tasha is a 47-year-old female, who had a small bowel volvulus following gastric bypass treated in [place]. She presented to the ER with recurrent obstruction. After preoperative evaluation and discussion of possible risks and possible complications, she wished to proceed with surgical procedure. HOSPITAL COURSE: Tasha had her surgery on 06/07/2017. She had no operative complications. On postoperative day #1, her IV was decreased. Urine output was satisfactory. Escobar catheter was removed. Upper GI looked good, and she was started on a diet. On postoperative day 2, her orders remained the same and waiting for bowels to start working. On postoperative day 3, she was changed to oral pain medication, Dilaudid was making her nauseated, and she was started on suppositories. She also had a barium swallow with small bowel follow-through, and that was negative. On 06/11/2017, her bowels started to move, and she was able to have bowel movements. Appetite increased. Vital signs were stable, and she was able to be discharged to home on 06/12/2017. PHYSICAL EXAMINATION/OBJECTIVE: GENERAL: Tasha Rayo is a 47-year-old female. VITAL SIGNS: Height is 5 feet and 2.99 inches and weight is 175 pounds. TPR with temperature of 97.3, pulse of 67, respirations of 16, and blood pressure of 115/76. HEENT: Negative. NECK: Supple. HEART: Regular rate and rhythm. LUNGS: Clear. ABDOMEN: [place] are in place. She has a midline MYNOR drain, and that has been draining a light red drainage. Abdominal binder has been on. EXTREMITIES: Without peripheral edema. DISPOSITION: Discharged to home. CONDITION: Stable and improving. DISCHARGE FOLLOWUP: Followup appointment with Cate Bautista PA-C on 06/18/2017 at 10:00 a.m. HOME MEDICATIONS: 1. Tylenol 650 mg oral q.6 hours. 2. Celebrex 200 mg daily, #14. 3. Zofran 4 mg q.4 hours p.r.n. nausea, #30. 4. Oxycodone 5 mg one to two every 4 hours p.r.n. pain, #50. She is to resume all of her home medications that she took prior to coming into the hospital. DIET: Drink eight to ten glasses of water a day. Step-4 gastric bypass diet. ACTIVITY: No lifting greater than 10 pounds for six weeks. Other activity, walk six times daily inside your home. Driving, do not drive on pain medication. May shower. DISCHARGE INSTRUCTIONS: Notify provider if any fever, increased pain, nausea, or vomiting. Wound Incision Care: Keep site clean and dry. Wear abdominal binder for two weeks, and then as tolerated. Special Instructions: Use incentive spirometer 10 times every hour while awake for one week, and then to empty and record MYNOR drain four times a day and bring results to clinic appointment.
== END 2017-06-12 10:20 | disposition home or self-care (01) | DRG 330 ==
LOC: JP.ED 19:41 → JP.MS 21:54
PROVIDERS: ADMIT Surgery; ATTEND Surgery
PROC: 0DS80ZZ Reposition Small Intestine, Open Approach (ICD-10-PCS; principal; 2017-06-07)
PROC: 0D7A0ZZ Dilation of Jejunum, Open Approach (ICD-10-PCS; 2017-06-07)
PROC: 0DBN0ZZ Excision of Sigmoid Colon, Open Approach (ICD-10-PCS; 2017-06-07)
PROC: 0D1N0ZP Bypass Sigmoid Colon to Rectum, Open Approach (ICD-10-PCS; 2017-06-07)
DX: K56.609 Unspecified intestinal obstruction, unspecified as to partial versus complete obstruction (principal); K91.2 Postsurgical malabsorption, not elsewhere classified; K56.2 Volvulus; E53.8 Deficiency of other specified B group vitamins; D50.9 Iron deficiency anemia, unspecified; F41.8 Other specified anxiety disorders; Z98.84 Bariatric surgery status; Z79.899 Other long term (current) drug therapy
CPT/HCPCS: 36415; 74177; 74240; 74240-26; 74245; 74245-26; 80048; 80053; 81001; 82150; 82565; 82607; 82728; 83690; 83735; 84100; 85025; 85610; 88307; 94667; 94762; 96361; 96374; 96375; 99223; 99285; 99285-25; A9270-GY; C9113; J0131; J0171; J0330; J0694; J1100; J1170; J1644; J2001; J2060; J2185; J2405; J2704; J2710; J2795; J3010; J3410; J3411; J3420; J3475; J3480; J7030; J7040; J7042; J7050; Q9967

== ENCOUNTER 2017-09-21 16:22 | Emergency (ER) | payer MEDICAID ==
[2017-09-21 16:32] VITALS: BP 123/72
[2017-09-21] MEDS ORDERED: HYDROmorphone 0.5 MG/0.5 ML Syringe IVPUSH ONE (17:12)
--- NOTE | 2017-09-21 17:12 | EDM.PDOC ---
ED HPI GENERAL MEDICAL PROBLEM - General Chief Complaint: Abdominal Pain Stated Complaint: ILLNESS Time Seen by Provider: 09/21/17 16:55 Source of Information: Reports: Patient History Limitations: Reports: No Limitations - History of Present Illness INITIAL COMMENTS - FREE TEXT/NARRATIVE: 47-year-old female who has had abdominal pain all week, back pain, feels like her abdomen is starting to become distended and she's had more significant pain over the past 8 hours. It radiates to her back. She feels chills, nauseated, and had one emesis today. Symptoms are very similar to when she had a bowel obstruction surgery last June. She has a history of a Noel-en-Y 13 years ago. Onset: Gradual Severity: Moderate Improves with: Reports: Other (Back pain feels somewhat better with flexion of the hips) Worsens with: Reports: Movement Associated Symptoms: Reports: Fever/Chills, Nausea/Vomiting. Denies: Chest Pain , Cough, Shortness of Breath Upper Abdominal Pain Score (Numeric/FACES): 7 - Related Data Allergies Allergy/AdvReac Type Severity Reaction Status Date / Time No Known Allergies Allergy Verified 06/06/17 20:07 Home Meds: Home Meds Acyclovir [Zovirax] 1 tab PO TID PRN 04/05/13 [History] Cyanocobalamin (Vitamin B-12) [Vitamin B-12] 3,000 mcg SL DAILY 04/05/13 [ History] Docusate Sodium [Colace] 200 mg PO DAILY PRN 04/05/13 [History] Multivitamin with Minerals [Multiple Vitamin] 1 tab PO BID 04/05/13 [History] Polyethylene Glycol 3350 [MiraLAX] 17 gm PO DAILY PRN 04/05/13 [History] Sennosides [Laxative] 30 mg PO BEDTIME PRN 04/05/13 [History] Vitamin B Complex [B Complex] 1 each PO DAILY 04/05/13 [History] Zolpidem Tartrate 5 mg PO BEDTIME PRN 04/05/13 [History] Ferrous Fumarate [Ferretts] 106 mg PO DAILY 03/30/14 [History] oxyCODONE 10 mg PO Q4H PRN 06/06/17 [History] Acetaminophen [Tylenol] 650 mg PO Q6H cup 06/12/17 [Rx] Celecoxib [CeleBREX] 200 mg PO DAILY@0800 #14 cap 06/12/17 [Rx] Ondansetron [Zofran ODT] 4 mg PO Q4H PRN #30 tab.dis 06/12/17 [Rx] oxyCODONE 5 - 10 mg PO Q4H PRN #50 tablet 06/12/17 [Rx] Past Medical History [employer] History: Reports: Musculoskeletal History: Reports: Fracture, Other (See Below) Other Musculoskeletal History: degenerative disease Psychiatric History: Reports: Depression, Psych Hospitalization(s), Suicide Attempt Hematologic History: Reports: Anemia, B12 Deficiency, Folic Acid - Infectious Disease History Infectious Disease History: Reports: Chicken Pox - Past Surgical History GI Surgical History: Reports: Bariatric Procedure, Cholecystectomy, Colonoscopy , Hernia Repair/Other, Small Bowel Social & Family History - Family History Family Medical History: Noncontributory - Tobacco Use Smoking Status *Q: Never Smoker Second Hand Smoke Exposure: No - Caffeine Use Caffeine Use: Reports: Coffee - Alcohol Use Days Per Week of Alcohol Use: 1 Number of Drinks Per Day: 1 Total Drinks Per Week: 1 - Recreational Drug Use Recreational Drug Use: No - Living Situation & Occupation Living situation: Reports: with Family (lives in [facility]) ED ROS GENERAL - Review of Systems Review Of Systems: See Below Constitutional: Reports: Chills, Malaise. Denies: Fever HEENT: Reports: No Symptoms Respiratory: Denies: Shortness of Breath Cardiovascular: Denies: Chest Pain GI/Abdominal: Reports: Abdominal Pain, Constipation, Nausea, Vomiting : Reports: No Symptoms Musculoskeletal: Reports: Back Pain Skin: Reports: No Symptoms Neurological: Denies: Headache Psychiatric: Reports: No Symptoms ED EXAM, GI/ABD - Physical Exam Exam: See Below Exam Limited By: No Limitations General Appearance: Alert, Mild Distress (Patient looks fairly uncomfortable) Eyes: Bilateral: Normal Appearance (No jaundice) Head: Atraumatic Respiratory/Chest: No Respiratory Distress, Lungs Clear Cardiovascular: Regular Rate, Rhythm GI/Abdominal Exam: Soft, Tender (Very tender to palpation across the left lateral and upper abdomen, mild guarding) Extremities: Normal Inspection Neurological: Alert, Oriented Psychiatric: Normal Affect, Normal Mood Skin Exam: Warm, Dry Course - Vital Signs Last Recorded V/S: Last Vital Signs Temp 97.0 F 09/21/17 16:31 Pulse 76 09/21/17 16:31 Resp 18 09/21/17 16:31 BP 123/72 09/21/17 16:31 Pulse Ox 100 09/21/17 16:31 - Orders/Labs/Meds Orders: Active Orders 24 hr Category Date Time Status Abdomen Pelvis w Cont [CT] Stat Exams 09/21/17 17:51 Taken Labs: Laboratory Tests 09/21/17 09/21/17 Range/Units 17:23 17:23 WBC 6.6 (4.5-11.0) K/uL RBC 3.70 (3.30-5.50) M/uL Hgb 11.1 L (12.0-15.0) g/dL Hct 34.7 L (36.0-48.0) % MCV 94 (80-98) fL MCH 30 (27-31) pg MCHC 32 (32-36) % Plt Count 334 (150-400) K/uL Neut % (Auto) 54 (36-66) % Lymph % (Auto) 32 (24-44) % [place] % (Auto) 11 H (2-6) % Eos % (Auto) 3 (2-4) % Baso % (Auto) 1 (0-1) % Sodium 144 (140-148) mmol/L Potassium 3.5 L (3.6-5.2) mmol/L Chloride 108 (100-108) mmol/L Carbon Dioxide 25 (21-32) mmol/L Anion Gap 14.5 H (5.0-14.0) mmol/L BUN 13 D (7-18) mg/dL Creatinine 0.7 (0.6-1.0) mg/dL Est Cr Clr Drug Dosing 82.19 mL/min Estimated GFR (MDRD) > 60 (>60) Glucose 104 (74-106) mg/dL Calcium 8.6 (8.5-10.1) mg/dL Lipase 144 (73-393) U/L Meds: Medications Discontinued Medications Generic Name Dose Route Start Last Admin Trade Name Freq PRN Reason Stop Dose Admin Hydromorphone HCl 0.5 mg 09/21/17 17:12 09/21/17 17:21 Dilaudid IVPUSH 09/21/17 17:13 0.5 mg ONETIME ONE Administration Sodium Chloride 1,000 mls @ 500 mls/hr 09/21/17 17:15 09/21/17 17:31 Normal Saline IV 500 mls/hr ASDIRECTED MADDI Administration Sodium Chloride 100 mls @ 3 mls/sec 09/21/17 18:00 09/21/17 18:21 Normal Saline IV 3 mls/sec ASDIRECTED MADDI Administration Iopamidol 150 ml 09/21/17 18:00 09/21/17 18:21 Isovue-300 (61%) IV 115 ml . DIRECTED MADDI Administration - Re-Assessments/Exams Free Text/Narrative Re-Assessment/Exam: 09/21/17 17:12 An IV will be started, hydration with normal saline and 0.5 mg of Dilaudid. CBC , CMP obtained with the intention of obtaining a CT scan when labs return. 09/21/17 19:10 Labs were reassuring. She was feeling better after the hydration and Dilaudid. A CT with IV contrast was obtained which was normal. The patient is going to continue with fluids for the next day or 2 and discuss her symptoms with Cate Bautista and Dr. Enciso in the next few days. Departure - Departure Time of Disposition: 19:21 Disposition: Home, Self-Care 01 Condition: Good Clinical Impression: Abdominal pain Qualifiers: Abdominal location: upper abdomen, unspecified Qualified Code(s): R10.10 - Upper abdominal pain, unspecified - Discharge Information Instructions: Abdominal Pain, Adult, [id number] Referrals: Vitaliy Arevalo MD [Primary Care Provider] - Forms: ED Department Discharge Care Plan Goals: Just clear liquids for the next 12-24 hours, continue your normal medications and update the surgical department in the next 24-48 hours if not improving satisfactorily. - My Orders Last 24 Hours: My Active Orders 09/21/17 17:51 Abdomen Pelvis w Cont [CT] Stat - Assessment/Plan Last 24 Hours: My Active Orders 09/21/17 17:51 Abdomen Pelvis w Cont [CT] Stat
[2017-09-21] MEDS ORDERED: Sodium Chloride 0.9% 1,000 ML IV SCH (17:15)
[2017-09-21] MEDS ORDERED: Iopamidol 612 MG/ML 150 ML Bottle IV SCH (18:00)
[2017-09-21] MEDS ORDERED: Sodium Chloride 0.9% 100 ML IV SCH (18:00)
== END 2017-09-21 19:23 | disposition home or self-care (01) ==
LOC: JP.ED 16:22
DX: R10.10 Upper abdominal pain, unspecified (principal); F32.9 Major depressive disorder, single episode, unspecified; D64.9 Anemia, unspecified; Z79.899 Other long term (current) drug therapy
CPT/HCPCS: 36415; 74177; 80048; 83690; 85025; 96361; 96374; 99284; J1170; J7030; J7040; 99283

== ENCOUNTER 2017-10-14 18:40 | Emergency (ER) | payer MEDICAID ==
[2017-10-14 19:01] VITALS: BP 137/79
[2017-10-14] MEDS ORDERED: Ketorolac 30 MG/ML SDV IVPUSH ONE (20:06)
[2017-10-14] MEDS ORDERED: Ondansetron 4 MG/2 ML SDV IVPUSH ONE (20:06)
[2017-10-14] MEDS ORDERED: Sodium Chloride 0.9% 1,000 ML IV SCH ×2 (20:15→21:45)
[2017-10-14] MEDS ORDERED: Morphine 2 MG/ML Syringe IVPUSH ONE (21:16)
[2017-10-14] MEDS ORDERED: Oseltamivir 75 MG Cap PO ONE (21:24)
--- NOTE | 2017-10-14 21:32 | EDM.PDOC ---
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: Reports: Acetaminophen, NSAIDS Middle Chest Pain Score (Numeric/FACES): 7 - Related Data Allergies Allergy/AdvReac Type Severity Reaction Status Date / Time No Known Allergies Allergy Verified 06/06/17 20:07 Home Meds: Home Meds Acyclovir [Zovirax] 1 tab PO TID PRN 04/05/13 [History] Cyanocobalamin (Vitamin B-12) [Vitamin B-12] 3,000 mcg SL DAILY 04/05/13 [ History] Docusate Sodium [Colace] 200 mg PO DAILY PRN 04/05/13 [History] Multivitamin with Minerals [Multiple Vitamin] 1 tab PO BID 04/05/13 [History] Polyethylene Glycol 3350 [MiraLAX] 17 gm PO DAILY PRN 04/05/13 [History] Sennosides [Laxative] 30 mg PO BEDTIME PRN 04/05/13 [History] Vitamin B Complex [B Complex] 1 each PO DAILY 04/05/13 [History] Ferrous Fumarate [Ferretts] 106 mg PO DAILY 03/30/14 [History] Acetaminophen [Tylenol] 650 mg PO Q6H cup 06/12/17 [Rx] Ondansetron [Zofran ODT] 4 mg PO Q4H PRN #30 tab.dis 06/12/17 [Rx] 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: Musculoskeletal History: Reports: Fracture, Other (See Below) Other Musculoskeletal History: degenerative disease Psychiatric History: Reports: Depression, Psych Hospitalization(s), Suicide Attempt Hematologic History: Reports: Anemia, B12 Deficiency, Folic Acid - Infectious Disease History Infectious Disease History: Reports: Chicken Pox - Past Surgical History GI Surgical History: Reports: Bariatric Procedure, Cholecystectomy, Colonoscopy , Hernia Repair/Other, Small Bowel Social & Family History - Family History Family Medical History: Noncontributory - Tobacco Use Smoking Status *Q: Never Smoker Second Hand Smoke Exposure: No - Caffeine Use Caffeine Use: Reports: Coffee - Alcohol Use Days Per Week of Alcohol Use: 1 Number of Drinks Per Day: 1 Total Drinks Per Week: 1 - Recreational Drug Use Recreational Drug Use: No - Living Situation & Occupation Living situation: Reports: with Family (lives in [place], [place].) 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.) ED ROS GENERAL - Review of Systems Review Of Systems: See Below Constitutional: Reports: Fever, Chills, Weakness, Fatigue HEENT: Reports: Throat Pain (From vomiting) Respiratory: Reports: Pleuritic Chest Pain, Cough Cardiovascular: Reports: No Symptoms Endocrine: Reports: Fatigue GI/Abdominal: Reports: Abdominal Pain (Mild epigastric abdominal pain due due to nausea vomiting/dry heaves.), Decreased Appetite, Nausea, Vomiting : Reports: No Symptoms Musculoskeletal: Reports: Muscle Pain, Muscle Stiffness, Other (Reports generalized muscle pain and weakness) Skin: Reports: No Symptoms Neurological: Reports: Headache, Weakness Psychiatric: Reports: No Symptoms Hematologic/Lymphatic: Reports: No Symptoms Immunologic: Reports: No Symptoms ED EXAM, GENERAL - Physical Exam Exam: See Below Exam Limited By: No Limitations General Appearance: Mild Distress, Other (Curled up exam table, tearful ) Eye Exam: Right Eye: Other (Bloodshot eyes secondary to crying) Ears: Normal External Exam, Normal Canal, Hearing Grossly Normal, Normal TMs Ear Exam: Bilateral Ear: Auricle Normal, Canal Normal, TM normal Nose: Normal Inspection, Normal Mucosa, No Blood, Clear Rhinorrhea Throat/Mouth: Normal Inspection, Normal Lips, Normal Teeth, Normal Gums, Normal Oropharynx, Normal Voice, No Airway Compromise Head: Atraumatic, Normocephalic Neck: Normal Inspection, Supple, Non-Tender, Full Range of Motion Respiratory/Chest: Lungs Clear, Normal Breath Sounds, No Accessory Muscle Use, Other (Pain with respirations and cough) Cardiovascular: Regular Rate, Rhythm, No Murmur GI/Abdominal: Normal Bowel Sounds, Soft, Non-Tender, No Organomegaly, No Distention, No Abnormal Bruit, No Mass (Female) Exam: Deferred Rectal (Female) Exam: Deferred Back Exam: Normal Inspection, Full Range of Motion Extremities: Normal Inspection, Normal Range of Motion, Non-Tender Neurological: Alert, Oriented, No Motor/Sensory Deficits Psychiatric: Anxious, Tearful Skin Exam: Warm, Dry, Intact, Normal Color, No Rash Lymphatic: No Adenopathy Course - Vital Signs Last Recorded V/S: Last Vital Signs Temp 38.2 C H 10/14/17 19:00 Pulse 116 H 10/14/17 19:00 Resp 16 10/14/17 19:00 BP 137/79 10/14/17 19:00 Pulse Ox 99 10/14/17 19:00 - Orders/Labs/Meds Orders: Active Orders 24 hr Category Date Time Status Abdomen Pelvis wo Cont [CT] Stat Exams 10/14/17 21:18 Taken Chest 2V [CR] Urgent Exams 10/14/17 20:06 Taken INFLUENZA A+B AG SCREEN [RM] Stat Lab 10/14/17 20:45 Ordered UA W/MICROSCOPIC [URIN] Urgent Lab 10/14/17 20:06 Ordered Sodium Chloride 0.9% [Normal Saline] 1,000 ml Med 10/14/17 20:15 Active IV ASDIRECTED Sodium Chloride 0.9% [Normal Saline] 1,000 ml Med 10/14/17 21:45 Active IV ASDIRECTED Medication Orders Sodium Chloride (Normal Saline) 1,000 mls @ 999 mls/hr IV ASDIRECTED MADDI Last Admin: 10/14/17 20:42 Dose: 999 mls/hr Sodium Chloride (Normal Saline) 1,000 mls @ 999 mls/hr IV ASDIRECTED MADDI Last Admin: 10/14/17 21:45 Dose: 500 mls/hr Labs: Laboratory Tests 10/14/17 10/14/17 Range/Units 20:20 20:20 WBC 11.1 H (4.5-11.0) K/uL RBC 3.96 (3.30-5.50) M/uL Hgb 12.6 (12.0-15.0) g/dL Hct 38.1 (36.0-48.0) % MCV 96 (80-98) fL MCH 32 H (27-31) pg MCHC 33 (32-36) % Plt Count 247 (150-400) K/uL Neut % (Auto) 80 H (36-66) % Lymph % (Auto) 9 L (24-44) % [place] % (Auto) 10 H (2-6) % Eos % (Auto) 1 L (2-4) % Baso % (Auto) 0 (0-1) % Sodium 143 (140-148) mmol/L Potassium 3.2 L (3.6-5.2) mmol/L Chloride 106 (100-108) mmol/L Carbon Dioxide 26 (21-32) mmol/L Anion Gap 14.2 H (5.0-14.0) mmol/L BUN 10 (7-18) mg/dL Creatinine 0.6 (0.6-1.0) mg/dL Est Cr Clr Drug Dosing 95.88 mL/min Estimated GFR (MDRD) > 60 (>60) Glucose 101 (74-106) mg/dL Calcium 8.2 L (8.5-10.1) mg/dL Meds: Medications Generic Name Dose Route Start Last Admin Trade Name Freq PRN Reason Stop Dose Admin Sodium Chloride 1,000 mls @ 999 mls/hr 10/14/17 20:15 10/14/17 20:42 Normal Saline IV 999 mls/hr ASDIRECTED MADDI Administration Sodium Chloride 1,000 mls @ 999 mls/hr 10/14/17 21:45 10/14/17 21:45 Normal Saline IV 500 mls/hr ASDIRECTED MADDI Administration Discontinued Medications Generic Name Dose Route Start Last Admin Trade Name Freq PRN Reason Stop Dose Admin Hydromorphone HCl 1 mg 10/14/17 22:11 Dilaudid IVPUSH 10/14/17 22:12 ONETIME ONE Ketorolac Tromethamine 30 mg 10/14/17 20:06 10/14/17 21:57 Toradol IVPUSH 10/14/17 20:07 30 mg ONETIME ONE Administration Morphine Sulfate 2 mg 10/14/17 21:16 10/14/17 21:52 Morphine IVPUSH 10/14/17 21:17 2 mg ONETIME ONE Administration Ondansetron HCl 4 mg 10/14/17 20:06 10/14/17 20:49 Zofran IVPUSH 10/14/17 20:07 4 mg ONETIME ONE Administration Oseltamivir Phosphate 75 mg 10/14/17 21:24 10/14/17 22:01 Tamiflu PO 10/14/17 21:25 75 mg ONETIME ONE Administration - Re-Assessments/Exams Free Text/Narrative Re-Assessment/Exam: 10/14/17 Labs; CBC, chemistry panel, influenza A- influenza B positive Imaging: Chest x-ray 2 view no acute pulmonary or cardiac process noted, large dilated loops of bowel CT abdomen pelvis without contrast negative for both structured or other acute pathology Given 2 L normal saline, Zofran 4 mg IV, morphine 2 mg IV and Dilaudid 1 mg IV and Tamiflu 75 mg by mouth 1 We'll plan to discharge to home. Advised to push fluids, rest, avoid being around other people to prevent spread of flu follow-up if has any worsening symptoms or not improved. Patient agrees with plan of care. Reviewed all lab reports, chest x-ray, and CT report of abdomen pelvis with patient Tasha agrees with plan of care Departure - Departure Time of Disposition: 22:47 Disposition: Home, Self-Care 01 Condition: Good Clinical Impression: History of gastric bypass, Influenza B - Discharge Information Referrals: Vitaliy Arevalo MD [Primary Care Provider] - Forms: ED Department Discharge Care Plan Goals: Influenza B -Tamiflu 75 mg one by mouth twice a day 5 days -Zofran 4 mg ODT every 6-8 hours as needed for nausea -Robitussin-AC 10 ML's every 4 hours when necessary painful cough Advised to push fluids, rest, take medication as directed Advised to stay at home, avoid crowds, no work for the next 7 days or until fever free 24 hours Advised to call primary care provider to discuss prophylactic treatment of household members Return to the emergency room for any increased pain, fever, rash, nausea, vomiting, or worsening of symptoms or not improved - Problem List & Annotations (1) Influenza B SNOMED Code(s): 53136726 Code(s): J10.1 - FLU DUE TO OTH IDENT INFLUENZA VIRUS W OTH RESP MANIFEST Status: Acute Priority: High Current Visit: Yes - Problem List Review Problem List Initiated/Reviewed/Updated: Yes - My Orders Last 24 Hours: My Active Orders 10/14/17 20:06 Chest 2V [CR] Urgent UA W/MICROSCOPIC [URIN] Urgent 10/14/17 20:15 Sodium Chloride 0.9% [Normal Saline] 1,000 ml IV ASDIRECTED 10/14/17 20:45 INFLUENZA A+B AG SCREEN [RM] Stat 10/14/17 21:18 Abdomen Pelvis wo Cont [CT] Stat 10/14/17 21:45 Sodium Chloride 0.9% [Normal Saline] 1,000 ml IV ASDIRECTED - Assessment/Plan Last 24 Hours: My Active Orders 10/14/17 20:06 Chest 2V [CR] Urgent UA W/MICROSCOPIC [URIN] Urgent 10/14/17 20:15 Sodium Chloride 0.9% [Normal Saline] 1,000 ml IV ASDIRECTED 10/14/17 20:45 INFLUENZA A+B AG SCREEN [RM] Stat 10/14/17 21:18 Abdomen Pelvis wo Cont [CT] Stat 10/14/17 21:45 Sodium Chloride 0.9% [Normal Saline] 1,000 ml IV ASDIRECTED Plan: Influenza B -Tamiflu 75 mg one by mouth twice a day 5 days -Zofran 4 mg ODT every 6-8 hours as needed for nausea -Robitussin-AC 10 ML's every 4 hours when necessary painful cough Advised to push fluids, rest, take medication as directed Advised to stay at home, avoid crowds, no work for the next 7 days or until fever free 24 hours Advised to call primary care provider to discuss prophylactic treatment of household members Return to the emergency room for any increased pain, fever, rash, nausea, vomiting, or worsening of symptoms or not improved
[2017-10-14] MEDS ORDERED: HYDROmorphone 1 MG/ML Syringe IVPUSH ONE (22:11)
--- NOTE | 2017-10-15 09:31 | CR ---
Chest 2V INDICATION: chest pain FINDINGS: Comparison 08/23/2012. Relatively shallow inspiration. Normal heart size. Lungs are clear. P ostoperative changes in the abdomen. Exam otherwise unremarkable.
== END 2017-10-14 23:10 | disposition home or self-care (01) ==
LOC: JP.ED 18:40
DX: J10.1 Influenza due to other identified influenza virus with other respiratory manifestations (principal); Z79.899 Other long term (current) drug therapy; Z98.84 Bariatric surgery status
CPT/HCPCS: 36415; 71046; 74176; 80048; 85025; 87804; 96361; 96374; 96375; 99284; A9270; J1885; J2270; J2405; J7040

== ENCOUNTER 2017-11-14 12:37 | Emergency (ER) | payer MEDICAID ==
[2017-11-14 12:58] VITALS: BP 133/80
[2017-11-14] MEDS ORDERED: Iohexol 647 MG/ML 50 ML SDV PO SCH (13:30)
[2017-11-14] MEDS ORDERED: Iohexol 300 MG/ML 30 ML Bottle ONE (13:31)
--- NOTE | 2017-11-14 13:32 | EDM.PDOC ---
ED HPI GENERAL MEDICAL PROBLEM - General Chief Complaint: Abdominal Pain Stated Complaint: ABDOMINAL PAIN, DIARRHEA Time Seen by Provider: 11/14/17 13:28 Source of Information: Reports: Patient History Limitations: Reports: No Limitations - History of Present Illness INITIAL COMMENTS - FREE TEXT/NARRATIVE: pt arrived with a history of pain and distention of her abdoman. She is continuously nauseated. She has a history of about 15 stools daily . She has no recnt antibiotics. Onset: Gradual, Other ( This has been going on over the past 5 days. ) Duration: Day(s): Location: Reports: Abdomen Associated Symptoms: Reports: Nausea/Vomiting, Other (pt has not vomited but she is continuously nauseated. ) Abdominal Pain Score (Numeric/FACES): 5 - Related Data Allergies Allergy/AdvReac Type Severity Reaction Status Date / Time No Known Allergies Allergy Verified 11/14/17 12:51 Home Meds: Home Meds Acyclovir [Zovirax] 1 tab PO TID PRN 04/05/13 [History] Cyanocobalamin (Vitamin B-12) [Vitamin B-12] 3,000 mcg SL DAILY 04/05/13 [ History] Docusate Sodium [Colace] 200 mg PO DAILY PRN 04/05/13 [History] Multivitamin with Minerals [Multiple Vitamin] 1 tab PO BID 04/05/13 [History] Polyethylene Glycol 3350 [MiraLAX] 17 gm PO DAILY PRN 04/05/13 [History] Sennosides [Laxative] 30 mg PO BEDTIME PRN 04/05/13 [History] Vitamin B Complex [B Complex] 1 each PO DAILY 04/05/13 [History] Ferrous Fumarate [Ferretts] 106 mg PO DAILY 03/30/14 [History] Acetaminophen [Tylenol] 650 mg PO Q6H cup 06/12/17 [Rx] Ondansetron [Zofran ODT] 4 mg PO Q4H PRN #30 tab.dis 06/12/17 [Rx] Past Medical History HEENT History: Reports: 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: Musculoskeletal History: Reports: Fracture, Other (See Below) Other Musculoskeletal History: degenerative disease of hip Psychiatric History: Reports: Depression, Psych Hospitalization(s), Suicide Attempt Hematologic History: Reports: Anemia, B12 Deficiency, Folic Acid - Infectious Disease History Infectious Disease History: Reports: Chicken Pox - Past Surgical History GI Surgical History: Reports: Bariatric Procedure, Cholecystectomy, Colonoscopy , Hernia Repair/Other, Small Bowel Social & Family History - Family History Family Medical History: Noncontributory - Tobacco Use Smoking Status *Q: Never Smoker - Caffeine Use Caffeine Use: Reports: Coffee - Recreational Drug Use Recreational Drug Use: No - Living Situation & Occupation Living situation: Reports: with Family (lives in [place], [place].) 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 She thinks she may have kyle in it for several days. She has tightness in her chest. She does not have true chest pain Exam Limited By: No Limitations General Appearance: Alert, Mild Distress Eyes: Bilateral: Normal Appearance, EOMI Ears: Normal TMs Nose: Normal Inspection Head: Atraumatic Neck: Normal Inspection Respiratory/Chest: No Respiratory Distress Cardiovascular: Regular Rate, Rhythm GI/Abdominal Exam: Distended, Other ( severe pain in her abdoman when she eats. ) (Female) Exam: Deferred Rectal (Female) Exam: Deferred Extremities: Normal Inspection Neurological: Alert, Oriented, Normal Cognition Psychiatric: Normal Affect Course - Vital Signs Last Recorded V/S: Last Vital Signs Temp 36.6 C 11/14/17 12:48 Pulse 73 11/14/17 12:48 Resp 16 11/14/17 12:48 BP 133/80 11/14/17 12:48 Pulse Ox 100 11/14/17 12:48 - Orders/Labs/Meds Orders: Active Orders 24 hr Category Date Time Status CLOSTRIDIUM DIFFICILE BY PCR [RM] Stat Lab 11/14/17 13:43 Ordered UA W/MICROSCOPIC [URIN] Urgent Lab 11/14/17 13:13 Ordered Iopamidol [Isovue-300 (61%)] Med 11/14/17 13:33 Active 100 ml IV . DIRECTED PRN Sodium Chloride 0.9% [Normal Saline] 1,000 ml Med 11/14/17 14:00 Active IV ASDIRECTED Sodium Chloride 0.9% [Normal Saline] 75 ml Med 11/14/17 13:45 Active IV ASDIRECTED Sodium Chloride 0.9% [Saline Flush] Med 11/14/17 13:33 Active 10 ml FLUSH ONETIME PRN Medication Orders Sodium Chloride (Normal Saline) 75 mls @ 3 mls/sec IV ASDIRECTED MADDI Last Admin: 11/14/17 14:41 Dose: 3 mls/sec Sodium Chloride (Normal Saline) 1,000 mls @ 999 mls/hr IV ASDIRECTED MADDI Last Admin: 11/14/17 15:18 Dose: 999 mls/hr Iopamidol (Isovue-300 (61%)) 100 ml IV . DIRECTED PRN PRN Reason: RADIOLOGY EXAM Stop: 11/15/17 13:34 Last Admin: 11/14/17 14:41 Dose: 100 ml Sodium Chloride (Saline Flush) 10 ml FLUSH ONETIME PRN PRN Reason: per radiology protocol Last Admin: 11/14/17 13:44 Dose: 10 ml Labs: Laboratory Tests 11/14/17 11/14/17 11/14/17 Range/Units 13:06 13:06 13:06 WBC 7.7 (4.5-11.0) K/uL RBC 3.85 (3.30-5.50) M/uL Hgb 12.0 (12.0-15.0) g/dL Hct 36.7 (36.0-48.0) % MCV 95 (80-98) fL MCH 31 (27-31) pg MCHC 33 (32-36) % Plt Count 352 (150-400) K/uL Neut % (Auto) 67 H (36-66) % Lymph % (Auto) 23 L (24-44) % [place] % (Auto) 7 H (2-6) % Eos % (Auto) 3 (2-4) % Baso % (Auto) 0 (0-1) % Sodium 140 (140-148) mmol/L Potassium 3.6 (3.6-5.2) mmol/L Chloride 107 (100-108) mmol/L Carbon Dioxide 24 (21-32) mmol/L Anion Gap 9.5 (5.0-14.0) mmol/L BUN 9 (7-18) mg/dL Creatinine 0.6 (0.6-1.0) mg/dL Est Cr Clr Drug Dosing 95.88 mL/min Estimated GFR (MDRD) > 60 (>60) Glucose 97 (74-106) mg/dL Calcium 8.2 L (8.5-10.1) mg/dL Total Bilirubin 0.4 (0.2-1.0) mg/dL AST 25 (15-37) U/L ALT 34 (12-78) U/L Alkaline Phosphatase 59 (46-116) U/L C-Reactive Protein 0.12 (0.0-0.3) mg/dL Total Protein 6.2 L (6.4-8.2) g/dL Albumin 3.5 (3.4-5.0) g/dL Globulin 2.7 (2.3-3.5) g/dL Albumin/Globulin Ratio 1.3 (1.2-2.2) Urine Color Urine Appearance Urine pH (4.5-8.0) Ur Specific [place] (1.008-1.030) Urine Protein (NEGATIVE) mg/dL Urine Glucose (UA) (NEGATIVE) mg/dL Urine Ketones (NEGATIVE) mg/dL Urine Occult Blood (NEGATIVE) Urine Nitrite (NEGATIVE) Urine Bilirubin (NEGATIVE) Urine Urobilinogen (NORMAL) mg/dL Ur Leukocyte Esterase (NEGATIVE) Urine RBC (0-5) Urine WBC (0-5) Ur Epithelial Cells Amorphous Sediment Urine Bacteria Urine Mucus 11/14/17 Range/Units 13:13 WBC (4.5-11.0) K/uL RBC (3.30-5.50) M/uL Hgb (12.0-15.0) g/dL Hct (36.0-48.0) % MCV (80-98) fL MCH (27-31) pg MCHC (32-36) % Plt Count (150-400) K/uL Neut % (Auto) (36-66) % Lymph % (Auto) (24-44) % [place] % (Auto) (2-6) % Eos % (Auto) (2-4) % Baso % (Auto) (0-1) % Sodium (140-148) mmol/L Potassium (3.6-5.2) mmol/L Chloride (100-108) mmol/L Carbon Dioxide (21-32) mmol/L Anion Gap (5.0-14.0) mmol/L BUN (7-18) mg/dL Creatinine (0.6-1.0) mg/dL Est Cr Clr Drug Dosing mL/min Estimated GFR (MDRD) (>60) Glucose (74-106) mg/dL Calcium (8.5-10.1) mg/dL Total Bilirubin (0.2-1.0) mg/dL AST (15-37) U/L ALT (12-78) U/L Alkaline Phosphatase (46-116) U/L C-Reactive Protein (0.0-0.3) mg/dL Total Protein (6.4-8.2) g/dL Albumin (3.4-5.0) g/dL Globulin (2.3-3.5) g/dL Albumin/Globulin Ratio (1.2-2.2) Urine Color Yellow Urine Appearance Clear Urine pH 6.0 (4.5-8.0) Ur Specific [place] 1.015 (1.008-1.030) Urine Protein Negative (NEGATIVE) mg/dL Urine Glucose (UA) Normal (NEGATIVE) mg/dL Urine Ketones Negative (NEGATIVE) mg/dL Urine Occult Blood Negative (NEGATIVE) Urine Nitrite Negative (NEGATIVE) Urine Bilirubin Negative (NEGATIVE) Urine Urobilinogen Normal (NORMAL) mg/dL Ur Leukocyte Esterase Negative (NEGATIVE) Urine RBC 0-5 (0-5) Urine WBC Not seen (0-5) Ur Epithelial Cells Moderate Amorphous Sediment Rare Urine Bacteria Not seen Urine Mucus Not seen Meds: Medications Generic Name Dose Route Start Last Admin Trade Name Freq PRN Reason Stop Dose Admin Sodium Chloride 75 mls @ 3 mls/sec 11/14/17 13:45 11/14/17 14:41 Normal Saline IV 3 mls/sec ASDIRECTED MADDI Administration Sodium Chloride 1,000 mls @ 999 mls/hr 11/14/17 14:00 11/14/17 15:18 Normal Saline IV 999 mls/hr ASDIRECTED MADDI Administration Iopamidol 100 ml 11/14/17 13:33 11/14/17 14:41 Isovue-300 (61%) IV 11/15/17 13:34 100 ml . DIRECTED PRN Administration RADIOLOGY EXAM Sodium Chloride 10 ml 11/14/17 13:33 11/14/17 13:44 Saline Flush FLUSH 10 ml ONETIME PRN Administration per radiology protocol Discontinued Medications Generic Name Dose Route Start Last Admin Trade Name Barbara PRN Reason Stop Dose Admin Sodium Chloride 79 mls @ 3 mls/sec 11/14/17 13:45 Normal Saline IV ASDIRECTED MADDI Iohexol 50 ml 11/14/17 13:30 Omnipaque-300 PO .ASDIRECTED MADDI Iohexol Confirm 11/14/17 13:31 Omnipaque Administered 11/14/17 13:32 Dose 30 ml .ROUTE .STK-MED ONE Iohexol 30 ml 11/14/17 13:39 11/14/17 13:33 Omnipaque PO 11/14/17 13:40 30 ml ONETIME ONE Administration Iopamidol 100 ml 11/14/17 13:35 Isovue-300 (61%) IV 11/15/17 13:36 . DIRECTED PRN RADIOLOGY EXAM - Re-Assessments/Exams Free Text/Narrative Re-Assessment/Exam: 11/14/17 15:54 pt does not have a true obstruction but she does have some dilated loops of bowel above the anastomosis and there is slower movement through this area. She is having about 15 stools daily. 11/14/17 16:57 Pt has numerous stools each am. Will mary to get a stool to be sure she does not have clostrium Departure - Departure Time of Disposition: 17:19 Disposition: Home, Self-Care 01 Condition: Fair Clinical Impression: Small bowel obstruction, partial - Discharge Information Referrals: PCP,None [Primary Care Provider] - Forms: ED Department Discharge Care Plan Goals: send sterile stool cups home with the pt--have her bring a stool back tomorrow for clostrium diff, appt at surgery clinic Friday at 9 am.Stay with a full liquid diet. over the weekend. - My Orders Last 24 Hours: My Active Orders 11/14/17 13:13 UA W/MICROSCOPIC [URIN] Urgent 11/14/17 13:33 Iopamidol [Isovue-300 (61%)] 100 ml IV . DIRECTED PRN Sodium Chloride 0.9% [Saline Flush] 10 ml FLUSH ONETIME PRN 11/14/17 13:43 CLOSTRIDIUM DIFFICILE BY PCR [] Stat 11/14/17 13:45 Sodium Chloride 0.9% [Normal Saline] 75 ml IV ASDIRECTED 11/14/17 14:00 Sodium Chloride 0.9% [Normal Saline] 1,000 ml IV ASDIRECTED - Assessment/Plan Last 24 Hours: My Active Orders 11/14/17 13:13 UA W/MICROSCOPIC [URIN] Urgent 11/14/17 13:33 Iopamidol [Isovue-300 (61%)] 100 ml IV . DIRECTED PRN Sodium Chloride 0.9% [Saline Flush] 10 ml FLUSH ONETIME PRN 11/14/17 13:43 CLOSTRIDIUM DIFFICILE BY PCR [RM] Stat 11/14/17 13:45 Sodium Chloride 0.9% [Normal Saline] 75 ml IV ASDIRECTED 11/14/17 14:00 Sodium Chloride 0.9% [Normal Saline] 1,000 ml IV ASDIRECTED
[2017-11-14] MEDS ORDERED: Iopamidol 612 MG/ML 100 ML Bottle IV PRN ×2 (13:33→13:35)
[2017-11-14] MEDS ORDERED: Sodium Chloride 0.9% 10 ML Syringe FLUSH PRN (13:33)
[2017-11-14] MEDS ORDERED: Iohexol 300 MG/ML 30 ML Bottle PO ONE (13:39)
[2017-11-14] MEDS ORDERED: Sodium Chloride 0.9% 75 ML IV SCH (13:45)
[2017-11-14] MEDS ORDERED: Sodium Chloride 0.9% 1,000 ML IV SCH (14:00)
--- NOTE | 2017-11-14 15:05 | CT ---
Abdomen Pelvis w Cont INDICATION: bloating, constant nausea, pain after eating. TECHNIQUE: CT images of the abdomen and pelvis performed. Coronal reformatted images obtained. Oral and IV contrast given Dosage reduction and iterative reconstruction techniques employed. COMPARISON: CT 10/14/2017 FINDINGS: Postoperative changes gastric bypass again noted. Stomach pouch is slightly larger than the previous study. No abnormal fluid collections or evidence of abscess. There is small bowel wall t hickening at the distal anastomosis and mildly dilated air-filled small bowel loops proximal to this. No evidence of high-grade obstruction, as contrast is seen distal to this level. Large amount stool throughout the colon as noted previously. No free air or ascites. Liver and spleen unremarkable. Chol ecystectomy. Adrenal glands and kidneys unremarkable. Abdominal aorta normal caliber. Urinary bladder unremarkable. IMPRESSION: Small bowel wall thickening at the anastomosis in the left abdomen with mildly dilated lo ops of small bowel proximal to this. No evidence of high-grade obstruction at this time, though if sy mptoms persist recommend follow-up study and close clinical follow-up.
== END 2017-11-14 17:33 | disposition home or self-care (01) ==
LOC: JP.ED 12:37
DX: K56.600 Partial intestinal obstruction, unspecified as to cause (principal); F32.9 Major depressive disorder, single episode, unspecified; D64.9 Anemia, unspecified; Z79.899 Other long term (current) drug therapy
CPT/HCPCS: 36415; 74177; 80053; 81001; 85025; 86140; 96360; 99284; J7030; J7040; J7050; Q9965; Q9967

== ENCOUNTER 2017-11-20 05:55 | Inpatient (IN) | payer MEDICAID ==
[2017-11-20] MEDS ORDERED: Gabapentin 300 MG Cap PO ONE (06:15)
[2017-11-20] MEDS ORDERED: Acetaminophen 500 MG Tab PO ONE (06:15)
[2017-11-20] MEDS ORDERED: Celecoxib 200 MG Cap PO ONE (06:15)
[2017-11-20] MEDS ORDERED: Scopolamine 1.5 MG Transdermal Patch TOP SCH (06:15)
[2017-11-20] MEDS ORDERED: Lidocaine 1% with EPINEPHrine 1:100,000 50 ML MDV ONE (06:51)
[2017-11-20] MEDS: Dextrose 5%-Lactated Ringers 1,000 ML IV SCH ×3 (06:51→11:58)
[2017-11-20] MEDS ORDERED: Bupivacaine 0.5% 50 ML MDV ONE (06:51)
[2017-11-20] MEDS ORDERED: Meropenem 500 MG SDV ONE (06:51)
[2017-11-20] MEDS ORDERED: Albuterol/Ipratropium 3.0-0.5 MG/3 ML Neb Soln NEB ONE (07:00)
[2017-11-20] MEDS ORDERED: Rocuronium 50 MG/5 ML Vial ONE (07:03)
[2017-11-20] MEDS ORDERED: Ondansetron 4 MG/2 ML SDV ONE (07:03)
[2017-11-20] MEDS ORDERED: Neostigmine Methylsulfate 1 MG/ML 5 ML Syringe ONE (07:03)
[2017-11-20] MEDS ORDERED: Dexamethasone 4 MG/ML SDV ONE (07:03)
[2017-11-20] MEDS ORDERED: Glycopyrrolate 0.2 MG/ML 5 ML MDV ONE (07:03)
[2017-11-20] MEDS ORDERED: Succinylcholine 200 MG/10 ML MDV ONE (07:03)
[2017-11-20] MEDS ORDERED: fentaNYL 250 MCG/5 ML SDV ONE ×2 (07:03→08:26)
[2017-11-20] MEDS ORDERED: Propofol 200 MG/20 ML SDV ONE (07:03)
[2017-11-20] MEDS ORDERED: Bupivacaine 0.5%/EPINEPHrine 1:200,000 50 ML MDV ONE (07:09)
[2017-11-20] MEDS ORDERED: cefOXitin 2 GM in Sodium Chloride 0.9% 50 ML IV ONE (07:15)
[2017-11-20] MEDS ORDERED: HYDROmorphone/Normal Saline 15 MG/30 ML PCA IV PRN (07:21)
[2017-11-20] MEDS ORDERED: Naloxone 0.4 MG/ML SDV IVPUSH PRN (07:21)
[2017-11-20] MEDS ORDERED: fentaNYL 100 MCG/2 ML SDV IVPUSH ONE ×2 (07:30→10:25)
[2017-11-20] MEDS ORDERED: Ropivacaine 37 ML, Dexamethasone 8 MG, EPINEPHrine 0.4 MG, Sodium Chloride 0.9% 40.6 ML NERVRT SCH ×4 (07:45)
[2017-11-20] MEDS ORDERED: Lidocaine 0.4%/D5W 2 GM/500 ML BAG IV SCH (07:45)
[2017-11-20] MEDS ORDERED: Lidocaine 2% 100 MG/5 ML Syringe IVPUSH ONE (07:45)
[2017-11-20] MEDS ORDERED: Ketamine 500 MG/5 ML MDV IV SCH (07:45)
[2017-11-20] MEDS ORDERED: hydrOXYzine HCl 100 MG/2 ML SDV IM ONE (09:50)
[2017-11-20] MEDS ORDERED: LORazepam 2 MG/ML SDV IVPUSH ONE (10:40)
[2017-11-20] MEDS ORDERED: Naloxone 0.4 MG/ML SDV IV PRN (11:41)
[2017-11-20] MEDS ORDERED: Labetalol 20 MG/4 ML Syringe IVPUSH PRN (12:00)
[2017-11-20] MEDS ORDERED: Ondansetron 4 MG/2 ML SDV IVPUSH PRN (12:00)
[2017-11-20] MEDS ORDERED: Albuterol/Ipratropium 3.0-0.5 MG/3 ML Neb Soln INH PRN (12:00)
[2017-11-20] MEDS ORDERED: Metoclopramide 10 MG/2 ML SDV IVPUSH PRN (12:00)
[2017-11-20] MEDS ORDERED: diphenhydrAMINE 50 MG/ML SDV IVPUSH PRN (12:00)
[2017-11-20] MEDS ORDERED: MVI, Adult with Vitamin K 10 ML, Thiamine 100 MG, Chromium/Copper/Mang/Selen/Zn 1 ML in... IV SCH ×4 (12:00)
[2017-11-20] MEDS ORDERED: Pantoprazole 40 MG Vial IVPUSH SCH (14:00)
[2017-11-20] MEDS ORDERED: Gabapentin 250 MG/5 ML Solution ML 470 ML Bottle PO SCH (14:00)
[2017-11-20] MEDS: cefOXitin 2 GM in Sodium Chloride 0.9% 50 ML IV SCH ×2 (14:46→20:11)
[2017-11-20] MEDS: Acetaminophen Soln 650 MG/20.3 ML UD Cup PO SCH ×2 (14:46→20:11)
[2017-11-20] MEDS: Heparin Sodium 5,000 Units/ML Vial SUBCUT SCH (20:10)
[2017-11-21] MEDS: hydrOXYzine HCl 100 MG/2 ML SDV IM PRN ×2 (00:28→05:53)
[2017-11-21] MEDS ORDERED: Iohexol 300 MG/ML 30 ML Bottle PO ONE (01:18)
[2017-11-21] MEDS: cefOXitin 2 GM in Sodium Chloride 0.9% 50 ML IV SCH (02:00)
[2017-11-21] MEDS: Acetaminophen Soln 650 MG/20.3 ML UD Cup PO SCH ×2 (02:01→08:27)
[2017-11-21] MEDS ORDERED: Iohexol 647 MG/ML 50 ML SDV PO SCH ×2 (04:15→04:30)
[2017-11-21] MEDS: Dextrose 5%-Lactated Ringers 1,000 ML IV SCH (06:43)
[2017-11-21] MEDS ORDERED: Dextrose 5%-Lactated Ringers 1,000 ML IV SCH (08:23)
[2017-11-21] MEDS ORDERED: Ondansetron 4 MG Tab.DIS PO PRN (08:26)
[2017-11-21] MEDS: Heparin Sodium 5,000 Units/ML Vial SUBCUT SCH ×2 (08:26→20:27)
[2017-11-21] MEDS ORDERED: Dicyclomine 10 MG Cap PO PRN (08:27)
[2017-11-21] MEDS ORDERED: Docusate Sodium 100 MG Cap PO PRN (08:27)
[2017-11-21] MEDS: Celecoxib 200 MG Cap PO SCH (08:27)
[2017-11-21] MEDS: SCOPOLAMINE PATCH CHECK TOP SCH (08:28)
[2017-11-21] MEDS ORDERED: Acyclovir 200 MG Cap PO PRN (09:00)
--- NOTE | 2017-11-21 09:31 | CR ---
Limited upper GI The patient is status post Noel-en-Y gastric bypass. There is no extravasation of contrast. The gastr ic pouch empties readily into a nondilated Noel limb. No complications are evident. Impression: 1. Status post Noel-en-Y gastric bypass without evidence for complication.
[2017-11-21] MEDS: Pantoprazole 40 MG Tab.CR PO SCH ×2 (10:31→16:09)
[2017-11-21] MEDS: Acetaminophen/oxyCODONE 325-5 MG Tab PO PRN ×3 (10:31→20:26)
--- NOTE | 2017-11-21 14:02 | PN ---
DATE OF SERVICE: 11/21/2017 SUBJECTIVE: Tasha is postop day #1. She states she has already noticed a difference when she is drinking liquids, that she does not have pain when anything hits her pouch. Escobar catheter was removed at 0500 hours. She would like to go on oral pain medication and has been ambulating. OBJECTIVE: GENERAL: Tasha is a 47-year-old female. She is alert and orientated. VITAL SIGNS: TPR 97.4, 70, 16, and blood pressure 109/65. HEENT: Negative. NECK: Supple. HEART: Regular rate and rhythm. LUNGS: Clear. ABDOMEN: Dressings dry and intact. Abdominal binder is on. EXTREMITIES: Without peripheral edema. ASSESSMENT: Laparotomy, release of small bowel obstruction, and possible bowel resection. Date of surgery, 11/20/2017. PLAN: 1. 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 2. Step-2 gastric bypass diet. 3. Decrease IV to 100 mL per hour. 4. Percocet 5/325 mg 1 to 2 every 4 hours p.r.n. pain. 5. Discontinue Tylenol. 6. Dressing off, may shower. 7. Home medications were started. 8. We will evaluate p.r.n. or in a.m. Cate Bautista PA-C /[id number]
[2017-11-21] MEDS ORDERED: MVI, Adult with Vitamin K 10 ML, Thiamine 100 MG, Chromium/Copper/Mang/Selen/Zn 1 ML in... IV SCH ×4 (16:00)
[2017-11-22] MEDS: Acetaminophen/oxyCODONE 325-5 MG Tab PO PRN ×2 (01:02→04:53)
[2017-11-22] MEDS: Celecoxib 200 MG Cap PO SCH (08:15)
[2017-11-22] MEDS: Heparin Sodium 5,000 Units/ML Vial SUBCUT SCH (08:15)
[2017-11-22] MEDS: Pantoprazole 40 MG Tab.CR PO SCH (08:16)
[2017-11-22] MEDS: SCOPOLAMINE PATCH CHECK TOP SCH (08:17)
[2017-11-22] MEDS ORDERED: Magnesium Hydroxide 400 MG/5 ML Susp 30 ML Cup PO ONE (08:30)
[2017-11-22] MEDS ORDERED: Cyanocobalamin (Vitamin B12) 1,000 MCG/ML SDV IM ONE (09:00)
[2017-11-22] MEDS ORDERED: Bisacodyl 5 MG Tab PO ONE (09:30)
--- NOTE | 2017-11-22 09:58 | PN ---
DATE OF SERVICE: 11/20/2017 ADMISSION DIAGNOSES: 1. Chronic abdominal pain, bloating, nausea, postprandial. 2. Single port Noel-en-Y gastric bypass surgery, unspecified surgical malabsorption, B12 deficiency, vitamin D deficiency, and left hip pain. DISCHARGE DIAGNOSES: Exploratory laparotomy with division of the jejunojejunostomy component of the Noel-en-Y gastric bypass, separate small bowel resection, repair of incisional hernia for partial small bowel obstruction, stricture at the jejunojejunostomy, and incisional hernia. Date of surgery 11/20/2017. HISTORY: Tasha Rayo is a 47-year-old female with postprandial abdominal pain for several months. After preoperative evaluation and discussion of possible risks and possible complications, she wished to proceed with surgical procedure. HOSPITAL COURSE: Tasha had her surgery on 11/20/2017. She had no operative complications. On postop day #1, she was started on a diet and oral pain medication. On postop day #2, she had a bowel movement and was able to be discharged to home. PHYSICAL EXAMINATION: GENERAL: Tasha Rayo is a 47-year-old female. VITAL SIGNS: Height is 5 feet 2 inches, weight is 162 pounds, TPR is 97.5, 69, 18, blood pressure 113/71. HEENT: Negative. NECK: Supple. HEART: Regular rate and rhythm. LUNGS: Clear. ABDOMEN: Incision looks good. Dressing dry and intact. Abdominal binder has been on. EXTREMITIES: Without peripheral edema. DISPOSITION: Discharged to home. CONDITION: Stable and improving. FOLLOWUP APPOINTMENT: Cate Bautista PA-C, on 12/02/2017 at 11:00 a.m. HOME MEDICATIONS: Percocet 5/325 mg 1-2 tablets every 4 hours p.r.n. pain, #40. Resume home medications. DIET: Usual diet as tolerated. Drink 8-10 glasses of water a day. ACTIVITY: As tolerated. No lifting greater than 10 pounds for 6 weeks. Driving: Do not drive while on pain medications. May shower. Keep operative site clean and dry. Wear abdominal binder for 6 weeks and then as tolerated. Notify provider if any fever, increased pain, nausea, or vomiting. Use incentive spirometer 10 times every hour while awake for 1 week. Cate Bautista PA-C /[id number]
[2017-11-22 10:09] VITALS: BP 113/71
--- NOTE | 2017-12-02 12:47 | OR ---
DATE OF PROCEDURE: 11/20/2017 PREOPERATIVE DIAGNOSIS: Partial small bowel obstruction. POSTOPERATIVE DIAGNOSES: 1. Partial small bowel obstruction associated with: a. Stricture at the jejunojejunostomy. b. Separate area small bowel deserosalization secondary to adherence to area of incisional hernia. 2. Incarcerated incisional hernia. OPERATIVE PROCEDURES: 1. Exploratory laparotomy with: a. Revision of the jejunojejunostomy component of Noel-en-Y gastric bypass (78340). b. Separate small bowel resection (63321). c. Repair of incarcerated incisional hernia (27178). d. Placement of Interceed mesh to displace pelvic and abdominal wall from underlying viscera to limit recurrent adhesion formation (55147). ANESTHESIA: General. ROUGH ROUNDER: Cate Bautista PA-C. INDICATIONS FOR PROCEDURE: This 47-year-old presenting with a picture of a partial small bowel obstruction. This is associated with abdominal distention. Given this, the patient is undergoing open laparotomy to minimize chances of injury to the distended bowel at that time of the placement of the abdominal wall trocars. Plan is to proceed with laparotomy with small bowel resection and/or revision of the jejunojejunostomy as needed. Potential risks including bleeding, infection, injury to underlying viscera, leaks from various GI tract closures, possible problems with the obstruction recurring or persisting overtime as well as the remote possibility of cardiopulmonary, septic, or hemorrhagic complications leading to were discussed, and the patient wishes to proceed. DETAILS OF PROCEDURE: The patient was taken to the operating room and placed in a supine position. After general endotracheal anesthesia was induced, a Escobar catheter was inserted and the abdomen was prepped and draped. A transversus abdominis plane block in subcostal locations was then placed bilaterally using a continuous ultrasound under standard solution. Following this, abdomen was prepped and draped. Escobar catheter was inserted. The midline incision was then made from the umbilicus upwards toward the xiphoid for the length of roughly a handsbreadth length. This was carried down through the full-thickness of the abdominal wall. Peritoneal cavity entered. Exploration was then undertaken. At this point, the patient was noted to have an incarcerated hernia at one of the trocar sites which contained some small bowel adherent to it. As this was taken down, this area was somewhat deserosalized and this area was subsequently resected. The patient also had what appeared to be the primary site of the partial obstruction being at the jejunojejunostomy, where the small bowel as it entered the jejunojejunostomy the Noel limb site was noted to be quite stenotic despite the lysis of adhesions. Given this, the decision was made to resect the first area of pathology identified and then revise the jejunojejunostomy as well. At this point, the small bowel was divided at the point where the Noel limb entered the jejunojejunostomy. This was done with a HOLLIS hansen load. At that point, then the area somewhat distal common limb was divided with 2 firings of the HOLLIS hansen load, and the underlying mesentery divided with single mesenteric HOLLIS loads. At that point, the small bowel continuity at that level was accomplished with 2 internal firings of the Endo-HOLLIS hansen loads, was then closed transversely with the same stapler and angles anastomosed, and mesenteric defect approximated with some 3-0 Vicryl stitch. The jejunojejunostomy was then revised with new anastomosis being accomplished with a [id number] enteroenterostomy between the divided end of the Noel limb and the common limb of 2 cm distal to the initial anastomosis. This was accomplished with internal firing of the Endo-HOLLIS hansen load. Once again, the common opening was then closed transversely with the same stapler and angles anastomosed, and mesenteric defect was approximated with some 3-0 Vicryl stitch. At that point, the area of hernia was addressed. There was some peritoneum and preperitoneal fat in it, this was excised and reduced. At that point, the abdomen was irrigated with antibiotic-containing saline solution. The patient was felt to be high risk for recurrent adhesion formation between the pelvic and abdominal wall and the underlying viscera. Given this, Interceed mesh was placed underneath the abdominal wall and pelvic wall and the midline fascia was then approximated with a #2 Vicryl stitch which included repair of the area of the incisional hernia. The deep subcutaneous tissue was then approximated with 2 layers of 3-0 Vicryl stitch and the skin with dangelo. Dressing was applied. The patient was taken to the recovery room in satisfactory condition. There were no evident complications. Physician television production assistant, Cate Bautista PA-C, played an essential role in assisting in this case, helping to position the patient, retract structures as needed, as well as suturing and cutting sutures when indicated. Her presence improved the patient's safety and decreased operative time. One additional note on this patient is that the final limb length for her follow through limb was 105 cm. The biliopancreatic limb 90 cm and the common limb 320 cm. Eduardo Enciso MD /[id number]
== END 2017-11-22 10:25 | disposition home or self-care (01) | DRG 345 ==
LOC: JP.SDS 05:55 → JP.MS 05:55 → EDSTATUS 07:15 → JP.2SS 09:40
PROVIDERS: ADMIT Surgery; ATTEND Surgery
PROC: 0DBA0ZX Excision of Jejunum, Open Approach, Diagnostic (ICD-10-PCS; principal; 2017-11-20)
PROC: 0WQF0ZZ Repair Abdominal Wall, Open Approach (ICD-10-PCS; 2017-11-20)
PROC: 0DBA0ZX Excision of Jejunum, Open Approach, Diagnostic (ICD-10-PCS; 2017-11-20)
PROC: 3E0T3BZ Introduction of Anesthetic Agent into Peripheral Nerves and Plexi, Percutaneous Approach (ICD-10-PCS; 2017-11-20)
PROC: 3E0M05Z Introduction of Adhesion Barrier into Peritoneal Cavity, Open Approach (ICD-10-PCS; 2017-11-20)
DX: K56.600 Partial intestinal obstruction, unspecified as to cause (principal); K91.2 Postsurgical malabsorption, not elsewhere classified; K43.0 Incisional hernia with obstruction, without gangrene; Z98.84 Bariatric surgery status; Z98.0 Intestinal bypass and anastomosis status; E53.8 Deficiency of other specified B group vitamins; E55.9 Vitamin D deficiency, unspecified; D50.8 Other iron deficiency anemias; B00.9 Herpesviral infection, unspecified; M25.552 Pain in left hip
CPT/HCPCS: 74240; 74240-26; 88307; 94762; A9270-GY; C9113; J0171; J0330; J0694; J1100; J1170; J1644; J2001; J2060; J2185; J2405; J2704; J2710; J2795; J3010; J3410; J3411; J3420; J7030; J7042; J7050; Q9967

== ENCOUNTER 2018-03-17 07:11 | Inpatient (IN) | payer MEDICAID ==
[~2018-03-17 07:11] MED LIST: Meropenem 500 MG SDV ONE
[2018-03-17] MEDS: Dextrose 5%-Lactated Ringers 1,000 ML IV SCH ×3 (07:28→22:45)
[2018-03-17] MEDS ORDERED: cefOXitin 2 GM in Sodium Chloride 0.9% 50 ML IV ONE (07:30)
[2018-03-17] MEDS ORDERED: Scopolamine 1.5 MG Transdermal Patch TOP SCH (07:30)
[2018-03-17] MEDS ORDERED: Gabapentin 300 MG Cap PO ONE (07:30)
[2018-03-17] MEDS ORDERED: Acetaminophen 500 MG Tab PO ONE (07:30)
[2018-03-17] MEDS ORDERED: Albuterol/Ipratropium 3.0-0.5 MG/3 ML Neb Soln NEB ONE (07:30)
[2018-03-17] MEDS ORDERED: Celecoxib 200 MG Cap PO ONE (07:30)
[2018-03-17] MEDS ORDERED: Succinylcholine 200 MG/10 ML MDV ONE (08:04)
[2018-03-17] MEDS ORDERED: Neostigmine Methylsulfate 1 MG/ML 5 ML Syringe ONE (08:04)
[2018-03-17] MEDS ORDERED: Rocuronium 50 MG/5 ML Vial ONE (08:04)
[2018-03-17] MEDS ORDERED: Dexamethasone 4 MG/ML SDV ONE (08:04)
[2018-03-17] MEDS ORDERED: Glycopyrrolate 0.2 MG/ML 5 ML MDV ONE (08:04)
[2018-03-17] MEDS ORDERED: Ondansetron 4 MG/2 ML SDV ONE (08:04)
[2018-03-17] MEDS ORDERED: fentaNYL 250 MCG/5 ML SDV ONE ×2 (08:04→09:02)
[2018-03-17] MEDS ORDERED: Propofol 200 MG/20 ML SDV ONE (08:04)
[2018-03-17] MEDS: HYDROmorphone/Normal Saline 15 MG/30 ML PCA IV PRN (08:25)
[2018-03-17] MEDS ORDERED: Ropivacaine 37 ML, Dexamethasone 8 MG, EPINEPHrine 0.4 MG, Sodium Chloride 0.9% 40.6 ML NERVRT SCH ×4 (08:45)
[2018-03-17] MEDS ORDERED: Lidocaine 0.4%/D5W 2 GM/500 ML BAG IV SCH (08:45)
[2018-03-17] MEDS ORDERED: Ketamine 500 MG/5 ML MDV IV SCH (08:45)
[2018-03-17] MEDS ORDERED: Lidocaine 2% 100 MG/5 ML Syringe IVPUSH ONE (08:45)
[2018-03-17] MEDS ORDERED: Bupivacaine 0.5%/EPINEPHrine 1:200,000 50 ML MDV ONE (09:11)
[2018-03-17] MEDS ORDERED: Linezolid 200 MG/100 ML Bag IRR ONE (09:20)
[2018-03-17] MEDS ORDERED: hydrOXYzine HCl 100 MG/2 ML SDV IM ONE (10:43)
[2018-03-17] MEDS ORDERED: fentaNYL 100 MCG/2 ML SDV IVPUSH ONE (11:09)
[2018-03-17] MEDS ORDERED: Naloxone 0.4 MG/ML SDV IV PRN (12:36)
[2018-03-17] MEDS ORDERED: hydrOXYzine HCl 100 MG/2 ML SDV IM PRN (13:00)
[2018-03-17] MEDS ORDERED: Ondansetron 4 MG/2 ML SDV IVPUSH PRN (13:00)
[2018-03-17] MEDS ORDERED: Albuterol/Ipratropium 3.0-0.5 MG/3 ML Neb Soln INH PRN (13:00)
[2018-03-17] MEDS ORDERED: diphenhydrAMINE 50 MG/ML SDV IVPUSH PRN (13:00)
[2018-03-17] MEDS ORDERED: Labetalol 20 MG/4 ML Syringe IVPUSH PRN (13:00)
[2018-03-17] MEDS ORDERED: Metoclopramide 10 MG/2 ML SDV IVPUSH PRN (13:00)
[2018-03-17] MEDS ORDERED: Pantoprazole 40 MG Vial IVPUSH SCH (14:00)
[2018-03-17] MEDS: Gabapentin 250 MG/5 ML Solution ML 470 ML Bottle PO SCH ×2 (14:03→20:24)
[2018-03-17] MEDS: cefOXitin 2 GM in Sodium Chloride 0.9% 50 ML IV SCH ×2 (14:04→20:23)
[2018-03-17] MEDS: Albuterol/Ipratropium 3.0-0.5 MG/3 ML Neb Soln INH SCH ×2 (14:39→20:24)
[2018-03-17] MEDS: MVI, Adult with Vitamin K 10 ML, Thiamine 200 MG, Chromium/Copper/Mang/Selen/Zn 1 ML in... IV SCH ×4 (16:30)
[2018-03-17] MEDS: Acetaminophen Soln 650 MG/20.3 ML UD Cup PO SCH ×2 (16:30→22:08)
[2018-03-17] MEDS: Heparin Sodium 5,000 Units/ML Vial SUBCUT SCH (20:23)
[2018-03-18] MEDS: cefOXitin 2 GM in Sodium Chloride 0.9% 50 ML IV SCH ×3 (02:17→14:04)
[2018-03-18] MEDS ORDERED: Iohexol 647 MG/ML 50 ML SDV PO STA (03:37)
[2018-03-18] MEDS: Acetaminophen Soln 650 MG/20.3 ML UD Cup PO SCH ×4 (03:50→21:00)
[2018-03-18] MEDS: Dextrose 5%-Lactated Ringers 1,000 ML IV SCH ×3 (05:14→20:58)
[2018-03-18] MEDS: SCOPOLAMINE PATCH CHECK TOP SCH (08:00)
[2018-03-18] MEDS: Albuterol/Ipratropium 3.0-0.5 MG/3 ML Neb Soln INH SCH (08:22)
--- NOTE | 2018-03-18 08:32 | CR ---
UGI wo KUB HISTORY: eval R -Y GBP FINDINGS: Limited upper GI series was obtained without fluoroscopy. Water-soluble contrast was admini stered orally. Immediate along with 15 minute delayed images were obtained. Small gastric pouch is de monstrated. Contrast passes readily through the gastrojejunostomy into loops of jejunum. No obstructi on is identified. There is no contrast extravasation. Midline skin dangelo are noted. Or coils consis tent abdominal wall graft material are demonstrated. There is mild atelectasis at the lung bases bila terally. IMPRESSION: No postoperative complication identified status post Noel-en-Y gastric bypass.
[2018-03-18] MEDS: Celecoxib 200 MG Cap PO SCH (08:46)
[2018-03-18] MEDS: Heparin Sodium 5,000 Units/ML Vial SUBCUT SCH ×2 (08:46→20:07)
[2018-03-18] MEDS: Gabapentin 250 MG/5 ML Solution ML 470 ML Bottle PO SCH ×3 (08:47→20:06)
--- NOTE | 2018-03-18 09:01 | PN ---
DATE OF SERVICE: 03/18/2018 SUBJECTIVE: Tasha is postoperative day 1. Pain has been controlled with the Dilaudid ELECT EQUIP MAINT ENG. She has been up and ambulating, is dizzy at first when she gets up. Vital signs have been stable. Oral intake 830. Urine output 960 via Escobar catheter. Her Escobar was just removed. REVIEW OF SYSTEMS: Remainder of review of systems negative for any pertinent positives and negatives. OBJECTIVE: GENERAL: Tasha Rayo is a pleasant 48-year-old female. She is resting comfortably in bed. VITAL SIGNS: TPR is 97.6, 64, 16, and blood pressure 87/57. HEENT: Negative. NECK: Supple. HEART: Regular rate and rhythm. LUNGS: Clear. ABDOMEN: Dressings dry and intact. Abdominal binder is on. EXTREMITIES: Without peripheral edema. ASSESSMENT: Exploratory laparotomy with lysis of adhesions, reduction of small bowel volvulus and closure of internal hernia, small bowel resection, small bowel stricturoplasty, repair of incarcerated recurrent incisional hernia, repair of incarcerated umbilical hernia with mesh and placement of Vicryl mesh to prevent adhesions for partial small bowel obstruction associated with small bowel volvulus, stricture at the biliopancreatic limb causing distorted jejunojejunostomy of focal small-bowel stricture, incarcerated recurrent incisional hernia and incarcerated umbilical hernia and extensive intraabdominal adhesions. Date of surgery 03/17/2018. PLAN: 1. Step-3 gastric bypass diet. 2. Decrease IV to 100 mL per hour. 3. Discontinue DuoNeb. 4. The patient is Noel-en-Y gastric bypass surgery. No straws. 5. Good pulmonary toilet. 6. Home medication; Zovirax 400 mg p.o. t.i.d. restarted. 7. We will evaluate p.r.n. or in a.m. Cate Bautista PA-C /[id number]
[2018-03-18] MEDS: Acyclovir 200 MG Cap PO SCH ×3 (09:42→20:07)
[2018-03-18] MEDS: Pantoprazole 40 MG Tab.CR PO SCH (14:03)
[2018-03-18] MEDS: MVI, Adult with Vitamin K 10 ML, Thiamine 200 MG, Chromium/Copper/Mang/Selen/Zn 1 ML in... IV SCH ×4 (15:22)
[2018-03-18] MEDS: HYDROmorphone/Normal Saline 15 MG/30 ML PCA IV PRN (15:47)
[2018-03-19] MEDS: Acetaminophen Soln 650 MG/20.3 ML UD Cup PO SCH ×4 (04:45→21:19)
[2018-03-19] MEDS: Dextrose 5%-Lactated Ringers 1,000 ML IV SCH (06:25)
[2018-03-19] MEDS: Pantoprazole 40 MG Tab.CR PO SCH (07:30)
[2018-03-19] MEDS: Celecoxib 200 MG Cap PO SCH (08:40)
[2018-03-19] MEDS: Polyethylene Glycol 3350 Powder 17 GM Packet PO SCH ×2 (08:40→20:19)
[2018-03-19] MEDS: Bisacodyl 5 MG Tab PO SCH ×2 (08:40→20:22)
[2018-03-19] MEDS: SCOPOLAMINE PATCH CHECK TOP SCH (08:41)
[2018-03-19] MEDS: Heparin Sodium 5,000 Units/ML Vial SUBCUT SCH ×2 (08:41→20:22)
[2018-03-19] MEDS: Acyclovir 200 MG Cap PO SCH ×3 (08:42→20:23)
[2018-03-19] MEDS: Gabapentin 250 MG/5 ML Solution ML 470 ML Bottle PO SCH ×3 (08:45→20:19)
[2018-03-19] MEDS ORDERED: Cyanocobalamin (Vitamin B12) 1,000 MCG/ML SDV IM ONE (09:00)
[2018-03-19] MEDS: HYDROmorphone 2 MG Tab PO PRN ×4 (09:10→21:19)
--- NOTE | 2018-03-19 10:46 | PN ---
DATE OF SERVICE: 03/19/2018 SUBJECTIVE: Tasha reports she had a good day. Pain has been controlled. She has been up ambulating. She has not had a bowel movement. Vital signs stable. Oral intake 4040 and urine output 5300. REVIEW OF SYSTEMS: Remainder of review of systems negative for any pertinent positives and negatives. OBJECTIVE: GENERAL: Tasha Rayo is a 48-year-old female, alert, orientated. VITAL SIGNS: TPR is 97.5, 78, 18, blood pressure 107/54. HEENT: Negative. NECK: Supple. HEART: Regular rate and rhythm. LUNGS: Clear. ABDOMEN: Dressing is dry and intact. Aquacel is on. Abdominal binder intact. EXTREMITIES: SCDs are on. No peripheral edema. ASSESSMENT: Exploratory laparotomy with lysis of adhesion and reduction of small bowel volvulus and closure of internal hernia, small bowel resection, small bowel stricturoplasty, repair of incarcerated recurrent incisional hernia, repair of incarcerated umbilical hernia with mesh and placement of Vicryl mesh to prevent adhesion for partial small bowel obstruction associated with small bowel volvulus, stricture of the biliopancreatic limb causing distorted jejunojejunostomy of focal small-bowel stricture, incarcerated recurrent incisional hernia and incarcerated umbilical hernia and extensive intraabdominal adhesions. Date of surgery 03/17/2018. PLAN: 1. Discontinue ONLINE RETAILER and continuous pulse ox. 2. Dilaudid 2 mg 1 to 2 every 4 hours p.r.n. pain. 3. Dulcolax 10 mg b.i.d., discontinue when the patient has bowel movement. 4. MiraLax 17 g. 5. Desired liquid of choice b.i.d. 6. Good pulmonary toilet. 7. We will evaluate p.r.n. or in a.m. Cate Bautista PA-C /[id number]
[2018-03-20] MEDS: Acetaminophen Soln 650 MG/20.3 ML UD Cup PO SCH ×2 (03:32→09:54)
[2018-03-20] MEDS ORDERED: Bisacodyl 10 MG Supp RECTAL PRN (07:46)
[2018-03-20] MEDS: Celecoxib 200 MG Cap PO SCH (08:44)
[2018-03-20] MEDS: Pantoprazole 40 MG Tab.CR PO SCH (08:44)
[2018-03-20] MEDS: Bisacodyl 5 MG Tab PO SCH (08:44)
[2018-03-20] MEDS: Heparin Sodium 5,000 Units/ML Vial SUBCUT SCH (08:44)
[2018-03-20] MEDS: Polyethylene Glycol 3350 Powder 17 GM Packet PO SCH (08:45)
[2018-03-20] MEDS: Acyclovir 200 MG Cap PO SCH (08:46)
[2018-03-20] MEDS: Gabapentin 250 MG/5 ML Solution ML 470 ML Bottle PO SCH (08:56)
[2018-03-20] MEDS ORDERED: Bisacodyl 10 MG Supp RECTAL ONE (09:00)
[2018-03-20] MEDS ORDERED: Polyethylene Glycol 3350 Powder 17 GM Packet PO ONE (09:00)
[2018-03-20 09:53] VITALS: BP 116/67
--- NOTE | 2018-03-20 11:11 | PN ---
DATE OF SERVICE: 03/20/2018 SUBJECTIVE: Tasha is passing flatus, but has not had a bowel movement. She is requesting a suppository. Pain is controlled. Vital signs have been stable. Oral intake on a step-3 gastric bypass diet is 1280 and output is 1500. REVIEW OF SYSTEMS: Remainder of review of systems negative for any pertinent positives and negatives. OBJECTIVE: GENERAL: Tasha Rayo is a pleasant 48-year-old female. VITAL SIGNS: TPR is 96.5, 68, 16, and blood pressure 101/58. HEENT: Negative. NECK: Supple. HEART: Regular rate and rhythm. LUNGS: Clear. ABDOMEN: Aquacel dressing was removed and dangelo intact. Incision looks good. Abdomen is soft, flat, and normally tender, which would be expected after surgery. EXTREMITIES: Without peripheral edema. ASSESSMENT: Exploratory laparotomy with lysis of adhesions, reduction of small bowel volvulus, closure of internal hernia, small bowel resection, small bowel stricturoplasty, repair of incarcerated recurrent incisional hernia, repair of incarcerated umbilical hernia with mesh, and placement of Vicryl mesh to prevent adhesion for partial small bowel obstruction associated with small bowel volvulus, stricture of biliopancreatic limb causing distorted jejunojejunostomy of focal small bowel stricture, incarcerated recurrent incisional hernia, and incarcerated umbilical hernia, and extensive intraabdominal adhesions. Date of surgery, 03/17/2018. PLAN: 1. Dulcolax suppository, give one now and may repeat b.i.d. p.r.n. 2. MiraLAX 112 grams. 3. We will evaluate p.r.n. or in a.m. Cate Bautista PA-C /[id number]
--- NOTE | 2018-03-20 12:24 | PCM.HP ---
H&P History of Present Illness - General Date of Service: 03/17/18 Admit Problem/Dx: Admission Diagnosis/Problem Admission Diagnosis/Problem Small bowel obstruction Source of Information: Patient History Limitations: Reports: No Limitations - History of Present Illness Initial Comments - Free Text/Narative: Abdominal pain and bloating started the end of February. A CT Scan was obtained Consult with Eduardo Enciso MD Location: Reports: Abdomen Quality: Reports: Ache, Pressure Severity: Moderate Improves with: Reports: Medication (Percocet and not eating. ) Worsens with: Reports: Eating, Movement Associated Symptoms: Reports: Loss of Appetite, Nausea/Vomiting, Weakness Abdomen Pain Score (Numeric/FACES): 6 - Related Data Allergies/Adverse Reactions: Allergies Allergy/AdvReac Type Severity Reaction Status Date / Time No Known Allergies Allergy Verified 03/17/18 07:52 Home Medications: Home Meds Acyclovir [Zovirax] 1 tab PO TID 04/05/13 [History] Multivitamin with Minerals [Multiple Vitamin] 1 tab PO BID 04/05/13 [History] Vitamin B Complex [B Complex] 1 each PO DAILY 04/05/13 [History] Ferrous Fumarate [Ferretts] 106 mg PO DAILY 03/30/14 [History] Calcium Carbonate/Vitamin D3 [Calcium Carbonate/Vitamin D 600 MG-200 Unit] 200 - 600 mg PO BID 11/18/17 [History] Cholecalciferol (Vitamin D3) [Vitamin D3] 3,000 unit PO DAILY 11/18/17 [History] Cyanocobalamin (Vitamin B-12) [B-12] 1,000 mcg IM .Q14DAY 11/18/17 [History] Acetaminophen [Tylenol] 650 mg PO Q6H PRN 11/20/17 [History] Acetaminophen/oxyCODONE [Percocet 325-5 MG] 5 - 325 mg PO Q4H PRN 03/16/18 [ History] HYDROmorphone [Dilaudid] 2 - 4 mg PO Q4H PRN #40 tablet 03/20/18 [Rx] Past Medical History HEENT History: Reports: 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) History: Reports: Musculoskeletal History: Reports: Fracture, Other (See Below) Other Musculoskeletal History: degenerative disease of hip Psychiatric History: Reports: Depression, Psych Hospitalization(s), Suicide Attempt Hematologic History: Reports: Anemia, B12 Deficiency, Folic Acid - Infectious Disease History Infectious Disease History: Reports: Chicken Pox - Past Surgical History GI Surgical History: Reports: Bariatric Procedure, Cholecystectomy, Colonoscopy , Hernia Repair/Other, Small Bowel Social & Family History - Family History Family Medical History: Noncontributory - Tobacco Use Smoking Status *Q: Never Smoker - Caffeine Use Caffeine Use: Reports: Coffee - Recreational Drug Use Recreational Drug Use: No - Living Situation & Occupation Living situation: Reports: with Family (lives in [place], [place].) 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 Exam - Exam Exam: See Below - Vital Signs Vital Signs: Last Vital Signs Temp 96.6 F 03/20/18 09:52 Pulse 83 03/20/18 09:52 Resp 16 03/20/18 09:52 BP 116/67 03/20/18 09:52 Pulse Ox 99 03/20/18 09:52 Weight: 167 lb 0.002 oz - Exam General: Alert, Oriented, Cooperative HEENT: PERRLA Neck: Supple Lungs: Clear to Auscultation, Normal Respiratory Effort Cardiovascular: Regular Rate, Regular Rhythm GI/Abdominal Exam: Soft, Tender (in all 4 quadrants ) (Female) Exam: Deferred Rectal (Female) Exam: Deferred Back Exam: Normal Inspection, Full Range of Motion Extremities: Normal Inspection, Normal Range of Motion Skin: Warm, Dry, Intact Neurological: Cranial Nerves Intact, Reflexes Equal Bilateral Neuro Extensive - Mental Status: Alert, Oriented x3, Normal Mood/Affect Neuro Extensive - Motor, Sensory, Reflexes: CN II-XII Intact, Normal Gait, Normal Reflexes Psychiatric: Alert, Normal Affect, Normal Mood - Patient Data Result Diagrams: 03/17/18 07:31 03/17/18 07:31 Problem List Initiated/Reviewed/Updated: No Orders Last 24hrs: Active Orders 24 hr Category Date Time Status Ready for Discharge [RC] PER UNIT ROUTINE Care 03/20/18 12:14 Ordered Bisacodyl [Dulcolax] Med 03/20/18 07:46 Active 10 mg RECTAL BID PRN Medication Orders Acetaminophen (Tylenol) 650 mg PO Q6H MADDI Last Admin: 03/20/18 09:54 Dose: 650 mg Admin: 03/20/18 03:32 Dose: 650 mg Admin: 03/19/18 21:19 Dose: 650 mg Admin: 03/19/18 17:29 Dose: 650 mg Admin: 03/19/18 11:27 Dose: 650 mg Admin: 03/19/18 04:45 Dose: 650 mg Admin: 03/18/18 21:00 Dose: 650 mg Admin: 03/18/18 15:54 Dose: 650 mg Admin: 03/18/18 09:43 Dose: 650 mg Admin: 03/18/18 03:50 Dose: 650 mg Admin: 03/17/18 22:08 Dose: 650 mg Admin: 03/17/18 16:30 Dose: 650 mg Acyclovir (Zovirax) 400 mg PO TID [facility] Last Admin: 03/20/18 08:46 Dose: 400 mg Admin: 03/19/18 20:23 Dose: 400 mg Admin: 03/19/18 13:47 Dose: 400 mg Admin: 03/19/18 08:42 Dose: 400 mg Admin: 03/18/18 20:07 Dose: 400 mg Admin: 03/18/18 14:04 Dose: 400 mg Admin: 03/18/18 09:42 Dose: 400 mg Bisacodyl (Dulcolax) 10 mg PO BID [facility] Last Admin: 03/20/18 08:44 Dose: 10 mg Admin: 03/19/18 20:22 Dose: 10 mg Admin: 03/19/18 08:40 Dose: 10 mg Bisacodyl (Dulcolax) 10 mg RECTAL BID PRN PRN Reason: Constipation Celecoxib (Celebrex) 200 mg PO DAILY@0800 [facility] Last Admin: 03/20/18 08:44 Dose: 200 mg Admin: 03/19/18 08:40 Dose: 200 mg Admin: 03/18/18 08:46 Dose: 200 mg Diphenhydramine HCl (Benadryl) 25 - 50 mg IVPUSH Q4H PRN PRN Reason: ITCHING Gabapentin (Neurontin) 300 mg PO TID [facility] Last Admin: 03/20/18 08:56 Dose: 300 mg Admin: 03/19/18 20:19 Dose: 300 mg Admin: 03/19/18 13:47 Dose: 300 mg Admin: 03/19/18 08:45 Dose: 300 mg Admin: 03/18/18 20:06 Dose: 300 mg Admin: 03/18/18 14:04 Dose: 300 mg Admin: 03/18/18 08:47 Dose: 300 mg Admin: 03/17/18 20:24 Dose: 300 mg Admin: 03/17/18 14:03 Dose: 300 mg Heparin Sodium (Porcine) (Heparin Sodium) 5,000 units SUBCUT Q12H [facility] Last Admin: 03/20/18 08:44 Dose: 5,000 units Admin: 03/19/18 20:22 Dose: 5,000 units Admin: 03/19/18 08:41 Dose: 5,000 units Admin: 03/18/18 20:07 Dose: 5,000 units Admin: 03/18/18 08:46 Dose: 5,000 units Admin: 03/17/18 20:23 Dose: 5,000 units Hydromorphone HCl (Dilaudid) 2 - 4 mg PO Q4H PRN PRN Reason: Pain Last Admin: 03/19/18 21:19 Dose: 4 mg Admin: 03/19/18 17:30 Dose: 4 mg Admin: 03/19/18 13:28 Dose: 4 mg Admin: 03/19/18 09:10 Dose: 4 mg Hydroxyzine HCl (Vistaril) 75 - 100 mg IM Q4H PRN PRN Reason: pain Dextrose/Lactated Ringer's (Dextrose 5%-Lactated Ringers) 1,000 mls @ 100 mls/ hr IV ASDIRECTED [facility] Last Admin: 03/19/18 06:25 Dose: 100 mls/hr Infusion: 03/19/18 06:25 Dose: 100 mls/hr Admin: 03/18/18 20:58 Dose: 100 mls/hr Infusion: 03/18/18 20:58 Dose: 100 mls/hr Admin: 03/18/18 12:22 Dose: 100 mls/hr Labetalol HCl (Normodyne) 5 - 15 mg IVPUSH Q1H PRN PRN Reason: SBP over 160 OR DBP over 95 Metoclopramide HCl (Reglan) 10 mg IVPUSH Q6H PRN PRN Reason: NAUSEA NOT CONTROL BY ZOFRAN Last Admin: 03/17/18 18:07 Dose: 10 mg Ondansetron HCl (Zofran) 4 mg IVPUSH Q4H PRN PRN Reason: Nausea/Vomiting Last Admin: 03/17/18 15:19 Dose: 4 mg Pantoprazole Sodium (Protonix) 40 mg PO ACBREAKFAST [facility] Last Admin: 03/20/18 08:44 Dose: 40 mg Admin: 03/19/18 07:30 Dose: 40 mg Admin: 03/18/18 14:03 Dose: 40 mg Polyethylene Glycol (Miralax) 17 gm PO BID [facility] Last Admin: 03/20/18 08:45 Dose: 17 gm Admin: 03/19/18 20:19 Dose: 17 gm Admin: 03/19/18 08:40 Dose: 17 gm Assessment/Plan Comment:: Assessment: Partial Small Bowel Obstruction Incisional Hernia SP RNY Gastric Bypass Surgery Vitamin B Deficiency Vitamin D Deficiency Iron Deficiency Anemia Plan: May proceed with surgical procedure. Cate Harmon
--- NOTE | 2018-03-20 15:53 | DISCH ---
ADMISSION DIAGNOSES: 1. Partial small bowel obstruction. 2. Incisional hernia. 3. Status post Noel-en-Y gastric bypass surgery. 4. Unspecified surgical malabsorption. 5. Vitamin B deficiency. 6. Vitamin D deficiency. 7. Anxiety. 8. Adjustment disorder with mixed anxiety and depressed mood. DISCHARGE DIAGNOSES: Exploratory laparotomy with lysis of adhesion, reduction of small bowel volvulus, closure of internal hernia, small bowel resection, small bowel stricturoplasty, repair of incarcerated recurrent incisional hernia, repair of incarcerated umbilical hernia with mesh, and placement of Vicryl mesh to prevent adhesion for partial small bowel obstruction associated with small bowel volvulus, stricture of biliopancreatic limb causing distorted jejunojejunostomy of focal small bowel stricture, incarcerated recurrent incisional hernia and incarcerated umbilical hernia, and extensive intraabdominal adhesions. Date of surgery 03/17/2018. Surgeon, Eduardo Enciso MD. HISTORY: Tasha Rayo is a 48-year-old female with abdominal pain. After preoperative evaluation and discussion of possible risks and possible complications, she wished to proceed with surgical procedure. HOSPITAL COURSE: Tasha had her surgery on 03/17/2018. She had no operative complications. On postoperative day #1, she was started on a step-3 gastric bypass diet. On postoperative day #2, she was started on oral pain medication and was given bowel stimulation. On postoperative day #3, she had a bowel movement, pain was managed, activity was good, vital signs stable, and she was able to be discharged to home. PHYSICAL EXAMINATION: GENERAL: Tasha Rayo is a 48-year-old female. VITAL SIGNS: Height is 5 feet 2.9 inches. Weight is 167 pounds. TPR is 96.6, 83, 16, and blood pressure 116/67. HEENT: Negative. NECK: Supple. HEART: Regular rate and rhythm. LUNGS: Clear. ABDOMEN: [place] intact. Abdominal binder has been on. She has been wearing a pressure dressing over the hernia site, underneath her abdominal binder. EXTREMITIES: Without peripheral edema. SKIN: Without rash. NEURO: Intact. PSYCHIATRIC: Mood and affect appropriate. DISPOSITION: Discharged to home. CONDITION: Stable and improving. FOLLOWUP: Followup appointment with Cate Bautista PA-C, on 03/27/2018 at 9 a.m. DISCHARGE MEDICATIONS: Home medications, Dilaudid 2 mg 1 to 2 every 4 hours p.r.n. pain, #40. She is to resume her other home medications. DIET: Step-3 gastric bypass diet. Drink 8 to 10 glasses of water a day. ACTIVITY: No lifting greater than 10 pounds for 6 weeks. Walk at least 6 times daily. Driving, do not drive while on narcotic pain medication. Shower/bathing, may shower. DISCHARGE INSTRUCTIONS: Wound incision care, keep operative site clean and dry. Wear a pressure dressing over hernia site and wear abdominal binder for 6 to 8 weeks. Notify provider if any fever, increased pain, nausea, or vomiting. Use incentive spirometer 10 times every hour while awake for one week.
--- NOTE | 2018-03-24 07:46 | OR ---
DATE OF PROCEDURE: PREOPERATIVE DIAGNOSES: 1. Partial small bowel obstruction. 2. Incisional hernia. POSTOPERATIVE DIAGNOSES: 1. Partial small bowel obstruction associated with: a. Small bowel volvulus. b. 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 c. Focal small bowel stricture. d. Incarcerated recurrent incisional hernia. e. Incarcerated umbilical hernia. f. Extensive intraabdominal adhesions. OPERATIVE PROCEDURES: 1. Exploratory laparotomy with lysis of extensive adhesions, and;. a. Reconstruction of small bowel volvulus and closure of internal hernia (88483). b. Small bowel resection (27265). c. Small-bowel strictureplasty (17366). d. Repair of incarcerated recurrent incisional hernia with mesh (85307, 98853). e. Repair of incarcerated umbilical hernia with mesh (22972). f. Placement of Vicryl mesh to displace pelvic and abdominal wall from underlying viscera to limit recurrent adhesion formation (82177). ANESTHESIA: General. COLLECTION CARD CLERK: Cate Bautista PA-C. INDICATIONS FOR PROCEDURE: This is a 48-year-old presenting with obvious recurrent incisional hernia along with picture of partial small bowel obstruction clinically. Plan is to proceed with exploratory laparotomy with repair of the hernia and small bowel procedure as indicated and including possible resection. Potential risks including bleeding, infection, leaks from various GI tract closures, problems with mesh becoming infected or the hernia recurring were all reviewed, and the patient wishes to proceed. DETAILS OF PROCEDURE: The patient was taken to the operating room and placed in a supine position. After general endotracheal anesthesia was induced, bilateral subcostal transverse abdominis plane blocks were placed using continuous ultrasound guidance. Following this, the abdomen was prepped and draped. The upper midline incision was then reused and carried down through the skin and subcutaneous tissue and into the peritoneal cavity. Upon entering the peritoneal cavity, the patient was noted to have an incarcerated incisional hernia containing some omentum and loop of small bowel and also had a separate incarcerated umbilical hernia which contained some omentum. These areas were reduced using a combination of cautery and blunt and sharp dissection. At this point, the small bowel was examined and the patient was noted to have a small bowel volvulus with roughly 3-4 feet of small bowel passing underneath the leaves of the jejunojejunostomy from a right to left orientation. This area was reduced and the underlying mesenteric defect then closed with a 2-0 silk stitch. The jejunojejunostomy was noted to be quite distorted at this point and related to traction of the mesentery of the biliopancreatic limb stump. Given this, the biliopancreatic limb stump was resected as well with the HOLLIS stapler. The mesentery was divided with mesenteric HOLLIS loads and small-bowel resection specimen then delivered from the field. Examination of small bowel revealed additional area of stricturing where there had been a chronic adhesion formation. At that level, the small bowel was flipped over on itself and a small opening made within it. A HOLLIS 60 mm stapler was placed creating a nhaq-cw-wcji anastomosis between the two portions of the small bowel and then the common opening then closed with a HOLLIS purple load. Angles of anastomosis were reinforced with some 3-0 Vicryl stitch. The patient was noted to have quite a bit in the way of adhesion between the pelvis and lower abdomen and small bowel and omentum. These were taken down with sharp dissection. At that point, the gloves, instruments, and sponges that had been used during small-bowel resection phase were removed and the abdomen was irrigated with a meropenem-containing saline solution. A Ventrio ST hernia patch was then selected, this measuring 19 x 24 cm, and at roughly 5 cm intervals along its circumference on the polypropylene side of the mesh 2-0 Vicryl sutures were placed. The mesh was then placed in intraperitoneal location and initially the upper half of the sutures were pulled through stab wounds in the predesignated locations, pulling the mesh up against the abdominal wall underneath and a 12-inch segment of Vicryl mesh was then placed underneath the mesh and from there down toward the pelvis and along the pelvic sidewalls and up against the abdominal wall to limit recurrent adhesion formation. Remaining sutures of the ventral ST mesh were then pulled up fixing the mesh in general position. This provided a wide margin away from the incisional hernia site as well as the umbilical hernia site. Once these were tied, the mesh was secured with additional titanium tacking screws placed between the shelf of the mesh and the overlying abdominal wall, thus fixing the mesh once again well away from the edges of the 2 hernias. At that point, no further problems were noted. The primary incision was closed at the fascia level with #2 Vicryl stitch and the subcutaneous tissue with 2 layers of 3-0 Vicryl stitch and the skin with dangelo, dressing was applied. The patient was taken to the recovery room in satisfactory condition. There were no evident complications. Physician bindery assistant, Cate Bautista, played an essential role in assisting in this case, helping to position the patient, retract structures as needed, as well as suturing and cutting sutures and stapling were indicated. Her presence improved patient safety and decreased the operative time. Eduardo Enciso MD /[id number]
== END 2018-03-20 12:30 | disposition home or self-care (01) | DRG 330 ==
LOC: JP.SDS 07:11 → JP.MS 07:11 → EDSTATUS 09:00 → JP.2SS 10:45
PROVIDERS: ADMIT Surgery; ATTEND Surgery
PROC: 0DS80ZZ Reposition Small Intestine, Open Approach (ICD-10-PCS; principal; 2018-03-17)
PROC: 0DB90ZX Excision of Duodenum, Open Approach, Diagnostic (ICD-10-PCS; 2018-03-17)
PROC: 0WUF0JZ Supplement Abdominal Wall with Synthetic Substitute, Open Approach (ICD-10-PCS; 2018-03-17)
PROC: 0WUF0JZ Supplement Abdominal Wall with Synthetic Substitute, Open Approach (ICD-10-PCS; 2018-03-17)
PROC: 0DQV0ZZ Repair Mesentery, Open Approach (ICD-10-PCS; 2018-03-17)
PROC: 0DNU0ZZ Release Omentum, Open Approach (ICD-10-PCS; 2018-03-17)
PROC: 0DN80ZZ Release Small Intestine, Open Approach (ICD-10-PCS; 2018-03-17)
PROC: 0DNW0ZZ Release Peritoneum, Open Approach (ICD-10-PCS; 2018-03-17)
PROC: 0DB80ZX Excision of Small Intestine, Open Approach, Diagnostic (ICD-10-PCS; 2018-03-17)
PROC: 0DQ80ZZ Repair Small Intestine, Open Approach (ICD-10-PCS; 2018-03-17)
PROC: 3E0M05Z Introduction of Adhesion Barrier into Peritoneal Cavity, Open Approach (ICD-10-PCS; 2018-03-17)
PROC: 3E0T3BZ Introduction of Anesthetic Agent into Peripheral Nerves and Plexi, Percutaneous Approach (ICD-10-PCS; 2018-03-17)
DX: K56.2 Volvulus (principal); K43.0 Incisional hernia with obstruction, without gangrene; K42.0 Umbilical hernia with obstruction, without gangrene; K91.2 Postsurgical malabsorption, not elsewhere classified; K56.51 Intestinal adhesions [bands], with partial obstruction; K46.9 Unspecified abdominal hernia without obstruction or gangrene; Z98.84 Bariatric surgery status; Z98.0 Intestinal bypass and anastomosis status; E53.8 Deficiency of other specified B group vitamins; E55.9 Vitamin D deficiency, unspecified; D50.9 Iron deficiency anemia, unspecified; H54.7 Unspecified visual loss; M16.10 Unilateral primary osteoarthritis, unspecified hip; Z91.5 Personal history of self-harm; F41.8 Other specified anxiety disorders
CPT/HCPCS: 36415; 74240; 74240-26; 80053; 81025; 82607; 82728; 82746; 83735; 84100; 85027; 88302; 88305; 94762; A9270-GY; C1781; C9113; J0171; J0330; J0694; J1100; J1170; J1644; J2020; J2185; J2405; J2704; J2710; J2765; J2795; J3010; J3410; J3411; J3420; J3490; J7030; J7042; J7050; Q9967

== ENCOUNTER 2018-07-25 12:04 | Emergency (ER) | payer MEDICAID ==
[2018-07-25 12:18] VITALS: BP 115/84
--- NOTE | 2018-07-25 12:43 | EDM.PDOC ---
ED HPI GENERAL MEDICAL PROBLEM - General Chief Complaint: Abdominal Pain Stated Complaint: PAIN FROM HERNIA Time Seen by Provider: 07/25/18 12:25 Source of Information: Reports: Patient History Limitations: Reports: No Limitations - History of Present Illness INITIAL COMMENTS - FREE TEXT/NARRATIVE: 48-year-old female with worsening abdominal pain for the past 3 weeks, intermittent diarrhea and nausea and vomiting. Her symptoms are similar to when she had a small bowel obstruction 5 months ago. She was seen in the surgical clinic yesterday and had labs drawn which were normal, and set up for a CT scan on Friday but was told if her pain worsens to come in over the weekend. She feels it is worse today and is very anxious about "waiting too long". Her pain is diffuse, she feels bloated by later in the day and her bowels are not regular like they usually are. No fevers or chills. Onset: Gradual Duration: Week(s): (Symptoms over the past several weeks) Associated Symptoms: Reports: Loss of Appetite, Malaise, Nausea/Vomiting. Denies: Fever/Chills Abdomen Pain Score (Numeric/FACES): 7 - Related Data Allergies Allergy/AdvReac Type Severity Reaction Status Date / Time No Known Allergies Allergy Verified 03/17/18 07:52 Home Meds: Home Meds Acyclovir [Zovirax] 1 tab PO TID 04/05/13 [History] Multivitamin with Minerals [Multiple Vitamin] 1 tab PO BID 04/05/13 [History] Vitamin B Complex [B Complex] 1 each PO DAILY 04/05/13 [History] Ferrous Fumarate [Ferretts] 106 mg PO DAILY 03/30/14 [History] Calcium Carbonate/Vitamin D3 [Calcium Carbonate/Vitamin D 600 MG-200 Unit] 200 - 600 mg PO BID 11/18/17 [History] Cholecalciferol (Vitamin D3) [Vitamin D3] 3,000 unit PO DAILY 11/18/17 [History] Cyanocobalamin (Vitamin B-12) [B-12] 1,000 mcg IM .Q14DAY 11/18/17 [History] Acetaminophen [Tylenol] 650 mg PO Q6H PRN 11/20/17 [History] Past Medical History HEENT History: Reports: Impaired Vision 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: 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: Musculoskeletal History: Reports: Fracture, Other (See Below) Other Musculoskeletal History: degenerative disease of hip Psychiatric History: Reports: Depression, Psych Hospitalization(s), Suicide Attempt Hematologic History: Reports: Anemia, B12 Deficiency, Folic Acid - Infectious Disease History Infectious Disease History: Reports: Chicken Pox - Past Surgical History GI Surgical History: Reports: Bariatric Procedure, Cholecystectomy, Colonoscopy , Hernia Repair/Other, Small Bowel Social & Family History - Family History Family Medical History: Noncontributory - Tobacco Use Smoking Status *Q: Never Smoker - Caffeine Use Caffeine Use: Reports: Coffee - Recreational Drug Use Recreational Drug Use: No - Living Situation & Occupation Living situation: Reports: with Family (lives in [place], [place].) 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 Denies: Fever, Chills HEENT: Reports: No Symptoms Respiratory: Denies: Shortness of Breath Cardiovascular: Denies: Chest Pain GI/Abdominal: Reports: Abdominal Pain, Diarrhea, Nausea Skin: Reports: No Symptoms Neurological: Denies: Headache Psychiatric: Reports: No Symptoms ED EXAM, GI/ABD - Physical Exam Exam: See Below Exam Limited By: No Limitations General Appearance: Alert, No Apparent Distress Eyes: Right: Normal Appearance (No jaundice, hydration is normal) Respiratory/Chest: No Respiratory Distress Cardiovascular: Regular Rate, Rhythm GI/Abdominal Exam: Normal Bowel Sounds, Tender (Moderately tender to palpation across the upper abdomen, no focal guarding or rebound) Neurological: Alert, Oriented Course - Vital Signs Last Recorded V/S: Last Vital Signs Temp 96.5 F 07/25/18 12:24 Pulse 89 07/25/18 12:24 Resp 14 07/25/18 12:24 BP 115/84 07/25/18 12:24 Pulse Ox 95 07/25/18 12:24 - Orders/Labs/Meds Orders: Active Orders 24 hr Category Date Time Status Abdomen Pelvis w Cont [CT] Stat Exams 07/25/18 12:38 Taken Meds: Medications Discontinued Medications Generic Name Dose Route Start Last Admin Trade Name Freq PRN Reason Stop Dose Admin Sodium Chloride 1,000 mls @ 500 mls/hr 07/25/18 12:45 07/25/18 13:09 Normal Saline IV 500 mls/hr ASDIRECTED MADDI Administration Sodium Chloride 100 mls @ 3 mls/sec 07/25/18 12:49 07/25/18 13:11 Normal Saline IV 07/25/18 12:50 3 mls/sec ONETIME ONE Administration Iopamidol 118 ml 07/25/18 13:00 07/25/18 13:11 Isovue-300 (61%) IV 150 ml . DIRECTED MADDI Administration - Re-Assessments/Exams Free Text/Narrative Re-Assessment/Exam: 07/25/18 12:42 Reviewed her clinic chart, complete labs were drawn yesterday and did not need to be repeated. An IV of normal saline was started and the patient will have an abdomen pelvis CT with IV contrast and afterwards a surgical consultation. 07/25/18 14:33 CT scan showed no acute findings. This was discussed with Dr. Enciso and with the patient, she is going to recheck with Cate Bautista on Friday morning and return sooner if worsening. She'll stick to a low-residue diet for the rest of the . Departure - Departure Time of Disposition: 14:39 Disposition: Home, Self-Care 01 Condition: Good Clinical Impression: Abdominal pain Qualifiers: Abdominal location: generalized Qualified Code(s): R10.84 - Generalized abdominal pain - Discharge Information Instructions: Abdominal Pain, Adult, [id number] Referrals: Vitaliy Arevalo MD [Primary Care Provider] - Forms: ED Department Discharge Care Plan Goals: Fluids and low residue diet for the rest of the and recheck with Cate Bautista on Friday as scheduled. Return to the emergency room if worsening and you feel you need hospital admission. - My Orders Last 24 Hours: My Active Orders 07/25/18 12:38 Abdomen Pelvis w Cont [CT] Stat - Assessment/Plan Last 24 Hours: My Active Orders 07/25/18 12:38 Abdomen Pelvis w Cont [CT] Stat
[2018-07-25] MEDS ORDERED: Sodium Chloride 0.9% 1,000 ML IV SCH (12:45)
[2018-07-25] MEDS ORDERED: Sodium Chloride 0.9% 100 ML IV ONE (12:49)
[2018-07-25] MEDS ORDERED: Iopamidol 612 MG/ML 150 ML Bottle IV SCH (13:00)
== END 2018-07-25 14:41 | disposition home or self-care (01) ==
LOC: JP.ED 12:04
DX: R10.84 Generalized abdominal pain (principal); Z79.899 Other long term (current) drug therapy
CPT/HCPCS: 74177; 96360; 96361; 99284; J7030

== ENCOUNTER 2019-09-10 07:03 | Inpatient (IN) | payer MEDICAID ==
[~2019-09-10 07:03] MED LIST changes: +Bupivacaine 0.5% 50 ML MDV ONE; +Lidocaine 1% with EPINEPHrine 1:100,000 50 ML MDV ONE
[2019-09-10] MEDS ORDERED: Acetaminophen 500 MG Tab PO ONE (07:15)
[2019-09-10] MEDS ORDERED: Dextrose 5%-Lactated Ringers 1,000 ML IV SCH (08:15)
[2019-09-10] MEDS ORDERED: Midazolam 1 MG/ML 2 ML SDV ONE (08:59)
[2019-09-10] MEDS ORDERED: fentaNYL 250 MCG/5 ML SDV ONE (08:59)
[2019-09-10] MEDS ORDERED: Ketamine 50 MG in Sodium Chloride 0.9% 49.5 ML IV SCH (09:00)
[2019-09-10] MEDS ORDERED: Ketamine 500 MG/5 ML MDV IV SCH (09:00)
[2019-09-10] MEDS ORDERED: Magnesium Sulfate 2.5 GM in Sodium Chloride 0.9% 100 ML IV SCH (09:00)
[2019-09-10] MEDS ORDERED: cefOXitin 2 GM in Sodium Chloride 0.9% 50 ML IV ONE (09:00)
[2019-09-10] MEDS ORDERED: Rocuronium 50 MG/5 ML Vial ONE ×2 (09:01→09:50)
[2019-09-10] MEDS ORDERED: Propofol 200 MG/20 ML SDV ONE (09:01)
[2019-09-10] MEDS ORDERED: Dexamethasone 4 MG/ML SDV ONE (09:02)
[2019-09-10] MEDS ORDERED: Glycopyrrolate 0.2 MG/ML 5 ML MDV ONE (09:02)
[2019-09-10] MEDS ORDERED: Ondansetron 4 MG/2 ML SDV ONE (09:02)
[2019-09-10] MEDS ORDERED: Lidocaine 2% 5 ML SDV ONE (09:02)
[2019-09-10] MEDS ORDERED: Neostigmine Methylsulfate 1 MG/ML 5 ML Syringe ONE (09:02)
[2019-09-10] MEDS ORDERED: diphenhydrAMINE 50 MG/ML SDV ONE (09:25)
[2019-09-10] MEDS ORDERED: fentaNYL 100 MCG/2 ML SDV ONE ×3 (10:05→10:56)
[2019-09-10] MEDS ORDERED: hydrOXYzine HCL 100 MG/2 ML SDV IM ONE (11:21)
[2019-09-10] MEDS ORDERED: fentaNYL 100 MCG/2 ML SDV IVPUSH ONE (11:29)
[2019-09-10] MEDS ORDERED: HYDROmorphone 0.5 MG/0.5 ML Syringe IVPUSH PRN (12:34)
[2019-09-10] MEDS ORDERED: Ondansetron 4 MG/2 ML SDV IVPUSH PRN (12:37)
[2019-09-10] MEDS ORDERED: Acetaminophen 500 MG Tab PO PRN (12:37)
[2019-09-10] MEDS ORDERED: hydrOXYzine HCL 100 MG/2 ML SDV IM PRN (12:37)
[2019-09-10] MEDS ORDERED: Metoclopramide 10 MG/2 ML SDV IVPUSH PRN (12:37)
[2019-09-10] MEDS ORDERED: Labetalol 20 MG/4 ML Syringe IVPUSH PRN (12:37)
[2019-09-10] MEDS ORDERED: diphenhydrAMINE 50 MG/ML SDV IVPUSH PRN (12:37)
[2019-09-10] MEDS ORDERED: Calcium Gluconate 10% 1 GM/10 ML SDV IVPUSH PRN (12:37)
[2019-09-10] MEDS: oxyCODONE 5 MG Tab PO PRN ×2 (12:48→19:38)
[2019-09-10] MEDS: HYDROmorphone 1 MG/ML Syringe IV PRN ×3 (12:48→21:40)
[2019-09-10] MEDS: Dextrose 5%-Lactated Ringers 1,000 ML IV SCH (13:30)
[2019-09-10] MEDS ORDERED: Sodium Ferric Gluconate Cmplex 250 MG in Sodium Chloride 0.9% 100 ML IV SCH (14:00)
[2019-09-10] MEDS: Cyanocobalamin (Vitamin B12) 1,000 MCG/ML SDV IM SCH (14:54)
[2019-09-10] MEDS: cefOXitin 2 GM in Sodium Chloride 0.9% 50 ML IV SCH ×2 (15:54→21:42)
[2019-09-10] MEDS ORDERED: Pantoprazole 40 MG Vial IVPUSH SCH (16:00)
[2019-09-10] MEDS ORDERED: MVI, Adult with Vitamin K 10 ML, Thiamine 200 MG, Chromium/Copper/Mang/Selen/Zn 1 ML in... IV SCH ×4 (16:00)
[2019-09-10] MEDS: Acetaminophen 500 MG Tab PO SCH ×2 (16:04→23:53)
[2019-09-10] MEDS: Heparin Sodium 5,000 Units/ML Vial SUBCUT SCH (19:42)
[2019-09-10] MEDS: Cyclobenzaprine 10 MG Tab PO PRN (21:39)
[2019-09-11] MEDS: cefOXitin 2 GM in Sodium Chloride 0.9% 50 ML IV SCH (03:43)
[2019-09-11] MEDS: oxyCODONE 5 MG Tab PO PRN ×5 (03:47→23:25)
[2019-09-11] MEDS ORDERED: Iopamidol 510 MG/ML 50 ML SDV PO ONE (05:03)
[2019-09-11] MEDS: Dextrose 5%-Lactated Ringers 1,000 ML IV SCH (05:13)
[2019-09-11] MEDS: Heparin Sodium 5,000 Units/ML Vial SUBCUT SCH ×2 (07:25→20:22)
[2019-09-11] MEDS: HYDROmorphone 1 MG/ML Syringe IV PRN (07:25)
[2019-09-11] MEDS: Acetaminophen 500 MG Tab PO SCH ×3 (07:26→23:21)
[2019-09-11] MEDS: Bisacodyl 5 MG Tab PO SCH ×2 (09:16→20:22)
[2019-09-11] MEDS: Cyanocobalamin (Vitamin B12) 1,000 MCG/ML SDV IM SCH (09:17)
[2019-09-11] MEDS: Docusate Sodium 100 MG Cap PO SCH ×2 (09:17→20:22)
[2019-09-11] MEDS ORDERED: Pantoprazole 40 MG Delayed-Release Granules 1 Packet PO SCH (16:30)
[2019-09-11] MEDS: Cyclobenzaprine 10 MG Tab PO PRN (20:25)
[2019-09-12] MEDS ORDERED: Magnesium Hydroxide 400 MG/5 ML Susp 30 ML Cup PO PRN (07:50)
[2019-09-12 08:18] VITALS: BP 110/66; PULSE 86
[2019-09-12] MEDS: Acetaminophen 500 MG Tab PO SCH (08:18)
[2019-09-12] MEDS: Docusate Sodium 100 MG Cap PO SCH (08:19)
[2019-09-12] MEDS: Bisacodyl 5 MG Tab PO SCH (08:19)
[2019-09-12] MEDS: Cyanocobalamin (Vitamin B12) 1,000 MCG/ML SDV IM SCH (08:19)
[2019-09-12] MEDS: Heparin Sodium 5,000 Units/ML Vial SUBCUT SCH (08:19)
--- NOTE | 2019-09-13 09:01 | CR ---
UGI Limited HISTORY: Postbariatric surgery FINDINGS: Patient swallowed water-soluble contrast. Upright views of the abdomen show no evidence of extravasation or obstruction. IMPRESSION: Status post bariatric surgery No extravasation or obstruction seen
--- NOTE | 2019-09-13 14:15 | DISCH ---
FINAL DIAGNOSES: 1. Partial small bowel obstruction secondary to: a. Intussusception at jejunojejunostomy. b. Separate small bowel stricture. 2. Incarcerated recurrent incisional hernia. 3. Extensive intraabdominal adhesions. SECONDARY DIAGNOSES: Bariatric surgery status, mixed anxiety and depression, iron deficiency anemia. OPERATIVE PROCEDURES: Done on 09/09, exploratory laparotomy with lysis of adhesions and: 1. Small bowel resection. 2. Secondary enteroenterostomy to reestablish Noel-en-Y small bowel anatomy. 3. Separate small bowel stricturoplasty. 4. Repair of incarcerated recurrent incisional hernia. 5. Placement of Vicryl mesh to limit recurrent adhesion formation. SUMMARY: This is a 49-year-old presenting with some increasing abdominal pain along with a recurrent incisional hernia involving prolapse of some previously placed mesh. On the date of admission, the patient underwent exploration with the above procedures to be undertaken. At this point, she is tolerating a step 3 diet satisfactorily and will be discharged home on a step 3 diet until her next appointment, which will be with Cate Bautista on 09/20/2019 in [facility]. She will continue present medications plus oxycodone 5 mg p.o. q.4 hours p.r.n. pain, #42, and Flexeril 10 mg p.o. t.i.d. p.r.n. muscle spasm, #30. The patient did receive transfusion of some iron x2 due to the low ferritin during the hospitalization, which she tolerated satisfactorily.
--- NOTE | 2019-09-13 15:29 | PN ---
DATE OF SERVICE: 09/11/2019 The patient has been afebrile with stable vital signs. Oral intake is fairly good and will go up to a step-2 diet today. and she will be going over to oral pain medicine more or less exclusively. Escobar catheter can come out and will begin some bowel stimulation. She may be ready for discharge home tomorrow. Eduardo Enciso MD /[id number]
--- NOTE | 2019-09-20 10:50 | OR ---
DATE OF PROCEDURE: 09/10/2019 SURGEON: Eduardo Enciso MD PREOPERATIVE DIAGNOSIS: Partial small bowel obstruction associated with probable intussusception. POSTOPERATIVE DIAGNOSES: 1. Partial small bowel obstruction secondary to: a. Intussusception at the jejunojejunostomy. b. Separate small bowel stricture. 2. Incarcerated recurrent incisional hernia. 3. Extensive intraabdominal adhesions. OPERATIVE PROCEDURES: Exploratory laparotomy with lysis of adhesions and: 1. Small bowel resection (94066). 2. Secondary enteroenterostomy to restore Noel-en-Y small bowel anatomy (75560). 3. Separate small bowel stricturoplasty (02762). 4. Repair of incarcerated recurrent incisional hernia (58705). 5. Placement of Vicryl mesh to displace pelvic and abdominal wall from underlying viscera to limit recurrent adhesion formation (25381). ANESTHESIA: General. SANDWICH PEDDLER: Cate Bautista PA-C INDICATION FOR PROCEDURE: This is a 49-year-old presenting with a picture of partial small bowel obstruction. The CT scan is somewhat suggestive of intussusception at the jejunojejunostomy. Plan is to proceed with exploratory laparotomy with probable resection of the jejunojejunostomy with subsequent reconstruction. The patient was also noted to have a recurrent hernia just superior to the previously placed mesh repair, and this would be repaired concurrently. Potential risks of the procedure including bleeding, infection, injury to underlying viscera, leaks from any GI tract anastomoses, possible recurrence of the hernia, as well as remote possibility of cardiopulmonary, septic, or hemorrhagic complications leading to were discussed, and the patient wishes to proceed. DETAILS OF PROCEDURE: The patient was taken to the operating room, placed in a supine position. After general endotracheal anesthesia was induced, a Escobar catheter was inserted, and the abdomen prepped and draped. A midline incision from somewhat below the umbilicus to somewhat above it was made and carried down through the full-thickness abdominal wall, the superior end of this hernia was identified, and the hernia sac was dissected free from the abdominal wall. The underlying mesh was then divided at this point, so as to allow adequate access to the abdomen. There were quite dense adhesions between the mesh and the omentum, which were taken down with a combination of electrocautery and blunt dissection. Once these adhesions were taken down, the abdomen was examined. The patient was noted to have a dilated and edematous jejunojejunostomy, consistent with intermittent intussusception at that level. The patient also had, in the more distal small bowel, evidence of some chronic adhesion formation and adherence to the mesh that was distinctly strictured. This was more or less in the mid common limb of the small bowel. At this point, the 3 components of the jejunojejunostomy were then divided with HOLLIS dangelo as was the underlying mesentery and the specimen was delivered from the field. The GI tract continuity was initially reestablished with ysxj-bj-zoyt anastomosis between what had been the distal-most biliopancreatic limb to the proximal-most common limb. This was done with a standard zrst-jy-ipio stapled anastomosis and the angles of anastomosis were reinforced with some 3-0 Vicryl stitch and the mesentery with 2-0 silk stitch. The Noel-en-Y anatomy was then reestablished with a secondary enteroenterostomy roughly 30 cm distal to the first anastomosis, again with a standard tejs-lz-rcat anastomosis, and the angles of anastomosis and mesenteric defect were reinforced as per the first anastomosis. The stricture in the mid common limb was then addressed. The bowel was flipped over on itself at the point of stricture and enterotomy placed at that point. Internal firing of the 60 mm HOLLIS stapler was then accomplished, and the common opening was then closed transversely with a HOLLIS stapler as well. The angles of anastomosis were reinforced with 3-0 Vicryl stitch. In this case, there was no mesenteric defect present. At this point, no further problems were noted. The abdomen was irrigated with antibiotic-containing saline solution. At this point, the pelvic and abdominal mcclure were from the underlying viscera with Vicryl mesh. The previous mesh was then reapproximated with 0 Prolene stitch. Primary fascial closure was then accomplished with a #2 Vicryl stitch. This included repair of the underlying hernia and that area with the same sutures brought down to include the previously placed mesh to help limit recurrence. Following this, the subcutaneous tissue was approximated with some 3- 0 and 4-0 Vicryl stitch and the skin with dangelo. The patient received bilateral transversus abdominis plane blocks and also had the incision anesthetized with 0.5% Marcaine mixed with lidocaine, and the patient was taken to the recovery room in satisfactory condition. Physician bilingual office assistant, Cate Bautista, played an essential role in assisting in this case, helping to position the patient, retract structures as needed, as well as suturing and cutting sutures when indicated. Her presence improved patient safety and decreased operative time. Eduardo Enciso MD /[id number]
== END 2019-09-12 11:00 | disposition home or self-care (01) | DRG 330 ==
LOC: JP.SDSSCHI 07:03 → JP.SDS 07:03 → JP.MS 11:15 → EDSTATUS 15:15
PROVIDERS: ADMIT Surgery; ATTEND Surgery
PROC: 0DB80ZZ Excision of Small Intestine, Open Approach (ICD-10-PCS; principal; 2019-09-10)
PROC: 0DNU0ZZ Release Omentum, Open Approach (ICD-10-PCS; 2019-09-10)
PROC: 0WQF0ZZ Repair Abdominal Wall, Open Approach (ICD-10-PCS; 2019-09-10)
PROC: 3E0M05Z Introduction of Adhesion Barrier into Peritoneal Cavity, Open Approach (ICD-10-PCS; 2019-09-10)
DX: K56.51 Intestinal adhesions [bands], with partial obstruction (principal); K43.0 Incisional hernia with obstruction, without gangrene; K56.1 Intussusception; E55.9 Vitamin D deficiency, unspecified; F41.8 Other specified anxiety disorders; D50.9 Iron deficiency anemia, unspecified; Z98.84 Bariatric surgery status; Z79.2 Long term (current) use of antibiotics; Z79.899 Other long term (current) drug therapy; Z98.890 Other specified postprocedural states
CPT/HCPCS: 74240; 74240-26; 81025; 88302; 88307; 93005; A9270-GY; C1781; C9113; J0171; J0694; J1100; J1170; J1200; J1644; J2001; J2185; J2250; J2405; J2704; J2710; J2795; J2916; J3010; J3410; J3411; J3420; J3475; J3490; J7050; J7121; Q9966

== ENCOUNTER 2022-06-10 06:44 | Inpatient (IN) | payer MEDICAID ==
[2022-06-10] MEDS ORDERED: Acetaminophen 500 MG Tab PO ONE (07:30)
[2022-06-10] MEDS ORDERED: Celecoxib 200 MG Cap PO ONE (07:30)
[2022-06-10] MEDS ORDERED: Scopolamine 1.5 MG Transdermal Patch TOP ONE (07:30)
[2022-06-10] MEDS ORDERED: Scopolamine 1.5 MG Transdermal Patch TOP SCH (07:30)
[2022-06-10] MEDS ORDERED: Dextrose 5%-Lactated Ringers 1,000 ML IV SCH (07:45)
[2022-06-10] MEDS ORDERED: fentaNYL 250 MCG/5 ML SDV ONE ×2 (07:52→11:01)
[2022-06-10] MEDS ORDERED: Glycopyrrolate 0.2 MG/ML 5 ML MDV ONE (07:54)
[2022-06-10] MEDS ORDERED: Neostigmine Methylsulfate 1 MG/ML 5 ML Syringe ONE (07:54)
[2022-06-10] MEDS ORDERED: Succinylcholine 200 MG/10 ML MDV ONE (07:54)
[2022-06-10] MEDS ORDERED: Rocuronium 50 MG/5 ML Vial ONE (07:54)
[2022-06-10] MEDS ORDERED: Ondansetron 4 MG/2 ML SDV ONE (07:54)
[2022-06-10] MEDS ORDERED: Dexamethasone 4 MG/ML SDV ONE (07:54)
[2022-06-10] MEDS ORDERED: Propofol 200 MG/20 ML SDV ONE (07:54)
[2022-06-10] MEDS ORDERED: Bupivacaine 0.5% 30 ML SDV ONE (08:42)
[2022-06-10] MEDS ORDERED: Lidocaine 1% with EPINEPHrine 1:100,000 50 ML MDV ONE (08:42)
[2022-06-10] MEDS ORDERED: Meropenem 500 MG SDV ONE (08:42)
[2022-06-10] MEDS ORDERED: cefOXitin 2 GM in Sodium Chloride 0.9% 50 ML IV ONE (08:45)
[2022-06-10] MEDS ORDERED: diphenhydrAMINE 25 MG Cap PO PRN (08:59)
[2022-06-10] MEDS ORDERED: Ondansetron 4 MG/2 ML SDV IVPUSH PRN ×2 (08:59→13:57)
[2022-06-10] MEDS ORDERED: HYDROmorphone/Normal Saline 6 MG/30 ML PCA Vial IV PRN (08:59)
[2022-06-10] MEDS ORDERED: Naloxone 0.4 MG/ML SDV IVPUSH PRN (08:59)
[2022-06-10] MEDS ORDERED: diphenhydrAMINE 50 MG/ML SDV IVPUSH PRN ×2 (08:59→14:15)
[2022-06-10] MEDS ORDERED: Ketamine 15 MG in Sodium Chloride 0.9% 19.85 ML IV SCH (09:00)
[2022-06-10] MEDS ORDERED: Ropivacaine 40 ML, dexAMETHasone 8 MG, EPINEPHrine 0.4 MG, Sodium Chloride 0.9% 37.6 ML NERVRT SCH ×4 (09:00)
[2022-06-10] MEDS ORDERED: Ketamine 500 MG/5 ML MDV IV SCH (09:00)
[2022-06-10] MEDS ORDERED: Naloxone 0.4 MG/ML SDV IV PRN ×2 (10:00→14:07)
[2022-06-10] MEDS ORDERED: Lactated Ringers 1,000 ML ONE (10:36)
[2022-06-10] MEDS ORDERED: Labetalol 20 MG/4 ML Syringe ONE (11:43)
[2022-06-10] MEDS ORDERED: Linezolid 600 MG/300 ML Premix Bag IRR ONE (12:08)
[2022-06-10] MEDS ORDERED: hydrOXYzine HCL 100 MG/2 ML SDV IM ONE (12:55)
[2022-06-10] MEDS ORDERED: Cyclobenzaprine 10 MG Tab PO PRN (14:09)
[2022-06-10] MEDS ORDERED: hydrOXYzine HCL 100 MG/2 ML SDV IM PRN (14:15)
[2022-06-10] MEDS ORDERED: Labetalol 20 MG/4 ML Syringe IVPUSH PRN (14:15)
[2022-06-10] MEDS ORDERED: Acetaminophen 500 MG Tab PO PRN (14:15)
[2022-06-10] MEDS ORDERED: Metoclopramide 10 MG/2 ML SDV IVPUSH PRN (14:15)
[2022-06-10] MEDS: Dextrose 5%-Lactated Ringers 1,000 ML IV SCH ×2 (14:35→21:38)
[2022-06-10] MEDS: Acetaminophen 500 MG Tab PO SCH ×2 (15:06→21:00)
[2022-06-10] MEDS ORDERED: Pantoprazole 40 MG Vial IVPUSH SCH (16:00)
[2022-06-10] MEDS ORDERED: MVI, Adult with Vitamin K 10 ML, Thiamine 200 MG, Zinc/Copper/Manganese/Selenium 1 ML i... IV SCH ×4 (16:00)
[2022-06-10] MEDS: cefOXitin 2 GM in Sodium Chloride 0.9% 50 ML IV SCH ×2 (17:11→22:01)
[2022-06-10] MEDS: HYDROmorphone/Normal Saline 6 MG/30 ML PCA Vial IV PRN (19:23)
[2022-06-10] MEDS: traZODone 50 MG Tab PO SCH (20:58)
[2022-06-10] MEDS: Heparin Sodium 5,000 Units/ML Vial SUBCUT SCH (20:58)
[2022-06-11] MEDS ORDERED: Iopamidol 612 MG/ML 50 ML SDV PO ONE (01:45)
[2022-06-11] MEDS: Dextrose 5%-Lactated Ringers 1,000 ML IV SCH ×2 (03:48→13:27)
[2022-06-11] MEDS: cefOXitin 2 GM in Sodium Chloride 0.9% 50 ML IV SCH ×4 (05:18→22:28)
[2022-06-11] MEDS: Acetaminophen 500 MG Tab PO SCH ×3 (05:18→22:29)
[2022-06-11 05:21] LABS: ESTIMATED GFR 89 mL/min (>60)
[2022-06-11] MEDS ORDERED: Ondansetron 4 MG Tab.DIS PO PRN (07:01)
[2022-06-11] MEDS: Magnesium Sulfate/Water 2 GM/50 ML BAG IV SCH ×3 (07:56→20:36)
[2022-06-11] MEDS: Heparin Sodium 5,000 Units/ML Vial SUBCUT SCH ×2 (07:59→20:36)
[2022-06-11] MEDS: Docusate Sodium 100 MG Cap PO SCH ×2 (08:01→20:37)
[2022-06-11] MEDS: Bisacodyl 5 MG Tab PO SCH ×2 (08:01→20:36)
[2022-06-11] MEDS: Celecoxib 200 MG Cap PO SCH ×2 (08:01→20:36)
[2022-06-11] MEDS: SCOPOLAMINE PATCH CHECK TOP SCH (10:36)
[2022-06-11] MEDS ORDERED: MVI, Adult with Vitamin K 10 ML, Thiamine 200 MG, Zinc/Copper/Manganese/Selenium 1 ML i... IV SCH ×4 (16:00)
[2022-06-11] MEDS: Pantoprazole 40 MG Delayed-Release Granules 1 Packet PO SCH (16:31)
[2022-06-11] MEDS: traZODone 50 MG Tab PO SCH (20:36)
[2022-06-12] MEDS: Magnesium Sulfate/Water 2 GM/50 ML BAG IV SCH ×4 (01:42→20:57)
[2022-06-12] MEDS: Dextrose 5%-Lactated Ringers 1,000 ML IV SCH (02:30)
[2022-06-12] MEDS: HYDROmorphone/Normal Saline 6 MG/30 ML PCA Vial IV PRN (04:36)
[2022-06-12] MEDS: cefOXitin 2 GM in Sodium Chloride 0.9% 50 ML IV SCH ×2 (05:01→11:41)
[2022-06-12] MEDS: Acetaminophen 500 MG Tab PO SCH ×3 (05:01→21:01)
[2022-06-12] MEDS: Heparin Sodium 5,000 Units/ML Vial SUBCUT SCH ×2 (07:22→20:58)
[2022-06-12] MEDS ORDERED: Cyanocobalamin (Vitamin B12) 1,000 MCG/ML SDV IM ONE (09:00)
[2022-06-12] MEDS: Docusate Sodium 100 MG Cap PO SCH ×2 (09:25→20:58)
[2022-06-12] MEDS: Celecoxib 200 MG Cap PO SCH ×2 (09:25→20:58)
[2022-06-12] MEDS: Bisacodyl 5 MG Tab PO SCH ×2 (09:25→20:58)
[2022-06-12] MEDS: SCOPOLAMINE PATCH CHECK TOP SCH (09:26)
[2022-06-12] MEDS: HYDROmorphone 2 MG Tab PO PRN ×2 (11:40→20:09)
[2022-06-12] MEDS: Pantoprazole 40 MG Delayed-Release Granules 1 Packet PO SCH (16:03)
[2022-06-12] MEDS: traZODone 50 MG Tab PO SCH (20:58)
[2022-06-13] MEDS: Acetaminophen 500 MG Tab PO SCH (05:12)
[2022-06-13] MEDS: HYDROmorphone 2 MG Tab PO PRN (05:12)
[2022-06-13 05:17] VITALS: PULSE 62
[2022-06-13] MEDS ORDERED: Cyanocobalamin (Vitamin B12) 1,000 MCG/ML SDV IM ONE (07:56)
[2022-06-13 07:57] VITALS: BP 99/66
[2022-06-13] MEDS: Heparin Sodium 5,000 Units/ML Vial SUBCUT SCH (07:57)
[2022-06-13] MEDS: Celecoxib 200 MG Cap PO SCH (08:05)
[2022-06-13] MEDS: Bisacodyl 5 MG Tab PO SCH (08:06)
[2022-06-13] MEDS: Docusate Sodium 100 MG Cap PO SCH (08:06)
== END 2022-06-13 12:14 | disposition home or self-care (01) | DRG 327 ==
LOC: JP.MS 06:44 → JP.SDS 06:44 → EDSTATUS 07:15 → JP.MS 13:56
PROVIDERS: ADMIT Surgery; ATTEND Surgery
PROC: 0D160ZA Bypass Stomach to Jejunum, Open Approach (ICD-10-PCS; principal; 2022-06-10)
PROC: 0DQ80ZZ Repair Small Intestine, Open Approach (ICD-10-PCS; 2022-06-10)
PROC: 0DQ80ZZ Repair Small Intestine, Open Approach (ICD-10-PCS; 2022-06-10)
PROC: 0DQA0ZZ Repair Jejunum, Open Approach (ICD-10-PCS; 2022-06-10)
PROC: 3E0M05Z Introduction of Adhesion Barrier into Peritoneal Cavity, Open Approach (ICD-10-PCS; 2022-06-10)
DX: K95.89 Other complications of other bariatric procedure (principal); K56.600 Partial intestinal obstruction, unspecified as to cause; E55.9 Vitamin D deficiency, unspecified; E53.9 Vitamin B deficiency, unspecified; Z98.84 Bariatric surgery status; Z79.899 Other long term (current) drug therapy
CPT/HCPCS: 36415; 74240; 74240-26; 80048; 80053; 83735; 84100; 85025; 88305; 88307; A9270-GY; C9113; J0171; J0330; J0694; J1100; J1170; J1644; J2020; J2185; J2405; J2704; J2710; J2795; J3010; J3410; J3411; J3420; J3475; J3490; J7120; J7121; Q9967